=== PATIENT | female | born 1960 | race Caucasian/White ===

== ENCOUNTER 2020-08-18 08:02 | Outpatient (CLI) | payer MEDICARE, SELFPAY ==
--- NOTE | ~2020-08-18 | MM_ITS ---
EXAMINATION: MM screening elena BI w amina HISTORY: Screening mammogram TECHNIQUE: Craniocaudal and mediolateral oblique 3-D tomosynthesis images were obtained and synthetic 2-D images were generated. CAD analysis was submitted and interpreted. COMPARISON: 01/31/2018, 06/30/2016 BREAST PARENCHYMAL COMPOSITION: The breasts are almost entirely fatty. FINDINGS: Stable intramammary lymph node is noted in the upper outer quadrant of the right breast. Th ere is no evidence of suspicious mass, calcification, or architectural distortion to suggest malignan cy in either breast. There has been no suspicious interval change. IMPRESSION: 1. No mammographic evidence of malignancy. 2. Recommend routine screening mammography in one year. BI-RADS Category 2: Benign finding(s). Reviewed, dictated and finalized at location D. GER
== END 2020-08-18 08:03 | disposition home or self-care (01) ==
PROVIDERS: PCP Family Medicine; Visit Provider Obstetrics & Gynecology Gynecology
DX: Z12.31 Encounter for screening mammogram for malignant neoplasm of breast (principal)
CPT/HCPCS: 77063; 77067

== ENCOUNTER 2022-09-26 16:05 | Outpatient (CLI) | payer MEDICARE, SELFPAY ==
--- NOTE | ~2022-09-26 | DEXA_ITS ---
Bone Density Report Name: GERONIMO HOWARD Age: 61 Sex: Female Ethnicity: White Date of : 1960 Indication: postmenopausal; screening for osteoporosis; Referring Provider: HEMANT VANEGAS Study: Bone densitometry was performed. Exam Date: September 26, 2022 Accession number: [id number] Bone Density: Region BMD T-score Z-score Classification AP Spine(L1-L4) 1.468 3.8 5.4 Normal Femoral Neck (Left) 0.852 0.0 1.4 Normal Total Hip (Left) 1.115 1.4 2.5 Normal Femoral Neck (Right) 0.855 0.1 1.5 Normal Total Hip (Right) 1.155 1.7 2.8 Normal Total Hip Mean 1.135 1.6 2.7 Normal World Health Organization criteria for BMD impression classify patients as: Normal (T-score at or above -1.0), Osteopenia (T-score between -1.0 and -2.5), or Osteoporosis (T-score at or below -2.5). 10-year Fracture Risk: FRAX not reported because: All T-scores for Spine Total, Hip Total, Femoral Neck at or above -1.0 Clinical Information Provided by Patient: Has used the following medications: HRT (i.e. estrogen/hormone therapy), Vitamin D Patient maximum height was 62 Menopause Age: 53 No regular weight bearing exercise Does not regularly consume dairy products Drinks caffeinated beverages Onset of menses at age 13 Number of children 3 Impression: The patient has normal bone mass. Discussion: BONE DENSITY IS ABOVE THE MINIMUM DESIRABLE LEVEL AT ALL SKELETAL SITES TESTED. This patient?s bone mineral density is above the minimum desirable level (T-score -1.0 or better) at all sites measured. The patient should follow a healthful lifestyle (good nutrition with adequate calcium and vitamin D, and appropriate weight-bearing exercise). Follow-Up: Consider repeating this study in 5 years or sooner if there is some new clinical indication. Reported by: SALVADOR on 09/26/2022 5:04:00 PM. Reviewed, dictated and finalized at location [facility] MANNING
--- NOTE | ~2022-09-26 | MM_ITS ---
EXAMINATION: MM screening elena BI w amina HISTORY: Screening TECHNIQUE: Craniocaudal and mediolateral oblique 3-D tomosynthesis images were obtained and synthetic 2-D images were generated. CAD analysis was submitted and interpreted. COMPARISON: Comparison to multiple prior studies sequentially, with oldest reviewed study dated 06/30. BREAST PARENCHYMAL COMPOSITION: There are scattered areas of fibroglandular density. FINDINGS: There is no evidence of suspicious mass, calcification, or architectural distortion to sugg est malignancy in either breast. There has been no suspicious interval change. IMPRESSION: 1. No mammographic evidence of malignancy. 2. Recommend routine screening mammography in one year. BI-RADS Category 1: Negative Reviewed, dictated and finalized at location A. CE AUDITOR
== END 2022-09-26 16:06 | disposition home or self-care (01) ==
PROVIDERS: PCP Family Medicine; Visit Provider Obstetrics & Gynecology Gynecology
DX: Z12.31 Encounter for screening mammogram for malignant neoplasm of breast (principal); Z78.0 Asymptomatic menopausal state
CPT/HCPCS: 77063; 77067; 77080

== ENCOUNTER → 2023-04-16 16:27 | Outpatient (CLI) | payer MEDICARE, SELFPAY ==
--- NOTE | ~2023-04-16 | XR_ITS ---
EXAMINATION: XR hip LT 2V w AP pelvis DATE: 04/16/2023 16:38 INDICATION: Left hip pain. TECHNIQUE: An anteroposterior view of the pelvis and 2 views of left hip were obtained. COMPARISON: None. FINDINGS: Bone alignment is normal. No fracture. There is at least moderate lumbar spondylosis. There is mild right hip osteoarthritis and severe left hip osteoarthritis. IMPRESSION: 1. Mild right hip osteoarthritis and severe left hip osteoarthritis. Reviewed, dictated and finalized at location E.
== END ==
PROVIDERS: PCP Physician Assistant Medical; Visit Provider Physician Assistant Medical
DX: M16.0 Bilateral primary osteoarthritis of hip (principal)
CPT/HCPCS: 73502

== ENCOUNTER 2024-03-28 14:13 | Outpatient (CLI) | payer MEDICARE, SELFPAY ==
--- NOTE | ~2024-03-28 | MM_ITS ---
EXAMINATION: MM screening elena BI w amina HISTORY: Screening TECHNIQUE: Craniocaudal and mediolateral oblique 3-D tomosynthesis images were obtained and synthetic 2-D images were generated. CAD analysis was submitted and interpreted. COMPARISON: Comparison to multiple prior studies sequentially, with oldest reviewed study dated 06/30. BREAST PARENCHYMAL COMPOSITION: Not dense: There are scattered areas of fibroglandular density. FINDINGS: There is no evidence of suspicious mass, calcification, or architectural distortion to sugg est malignancy in either breast. There has been no suspicious interval change. IMPRESSION: 1. No mammographic evidence of malignancy. 2. Recommend routine screening mammography in one year. BI-RADS Category 1: Negative Reviewed, dictated and finalized at location B.
== END 2024-03-28 14:14 | disposition home or self-care (01) ==
LOC: ANHIMG 14:14
PROVIDERS: PCP Family Medicine; Visit Provider Obstetrics & Gynecology Gynecology
DX: Z12.31 Encounter for screening mammogram for malignant neoplasm of breast (principal)
CPT/HCPCS: 77063; 77067

== ENCOUNTER 2024-05-05 13:48 | Outpatient (CLI) | payer MEDICARE, SELFPAY ==
--- NOTE | ~2024-05-05 | XR_ITS ---
AP view of the pelvis and AP and lateral views of the left hip Clinical history: Pain Findings: No acute fracture or dislocation is seen. Osseous alignment is anatomic. There is moderate left hip joint degenerative change. Right hip joint preserved. Soft tissues are unremarkable. Impression: Moderate left hip joint degenerative change. Reviewed, dictated and finalized at location . Impression: Moderate left hip joint degenerative change.
== END 2024-05-05 13:49 | disposition home or self-care (01) ==
LOC: ANHIMG 13:49
PROVIDERS: PCP Family Medicine; Visit Provider Orthopaedic Surgery
DX: M16.12 Unilateral primary osteoarthritis, left hip (principal)
CPT/HCPCS: 73502

== ENCOUNTER 2024-07-21 07:19 | Outpatient (CLI) | payer MEDICARE, SELFPAY ==
--- NOTE | 2024-07-21 | EST_ITS ---
Patient Info Name: Porsha Sinclair Age: 63 years : 1960 Gender: Female Wt: 190 lbs HR: 46 bpm BP: 112 / 75 mmHg Heart Rhythm: Sinus Rhythm Exam Date: 07/21/2024 8:18 AM Exam Location: Echo Lab Patient Status: Outpatient Admit Date: 07/21/2024 Staff Ordering Physician: Geena Savage MD Attending Provider: Geena Savage MD Exercise Technologist: Quita Cardenas CT Exercise Physician: Yeison Pickering DO Exam Type: CA stress margarita w NM Study Info Indications Z01.810 - Encounter for preprocedural cardiovascular examination A persantine stress test was performed. Summary 1. 1. Negative lexiscan stress test for ischemic ST changes by ECG criteria. 2. 2. Stable hemodynamics throughout the test. 3. 3. Nuclear scan to follow and will be reported separately. Please correlate with it. 4. 4. Patient informed of the above results. Protocol: Lexiscan Stress ECG Details Stage: REST Duration (min): 1 min : 37 sec HR (bpm): 46 SBP (mmHg): 112 DBP (mmHg): 75 Stage: REST Duration (min): 7 min : 32 sec HR (bpm): 51 SBP (mmHg): 112 DBP (mmHg): 75 Stage: STAGE 1 Duration (min): 0 min : 59 sec HR (bpm): 54 SBP (mmHg): 118 DBP (mmHg): 65 Stage: RECOVERY Duration (min): 1 min : 0 sec HR (bpm): 65 SBP (mmHg): 118 DBP (mmHg): 65 Stage: RECOVERY Duration (min): 2 min : 0 sec HR (bpm): 63 SBP (mmHg): 118 DBP (mmHg): 65 Stage: RECOVERY Duration (min): 3 min : 0 sec HR (bpm): 65 SBP (mmHg): 115 DBP (mmHg): 62 Stage: RECOVERY Duration (min): 3 min : 21 sec HR (bpm): 64 SBP (mmHg): 115 DBP (mmHg): 62 Rest HR: 51 bpm Peak HR: 70 bpm Rest Sys BP: 112 mmHg Peak Sys BP: 118 mmHg Max Pred HR: 156 bpm % Max Pred HR: 45 % Target HR: 133 bpm Max RPP: 8,260 bpm*mmHg Termination Reason: Completed protocol Cardiac Symptoms: Stomach discomfort Total Time: 1 min : 0 sec Rest Devi BP: 75 mmHg Peak Devi BP: 65 mmHg Total Dose: 0.4 mg Resting ECG Sinus bradycardia, cannot r/o septal infarct, borderline ST-T wave in high lateral leads. Stress ECG No ST changes. Arrhythmias None. Report Signatures
--- NOTE | ~2024-07-21 | NM_ITS ---
EXAMINATION: NM margarita stress w perfusion DATE: 07/21/2024 10:55 INDICATION: Encounter for screening for cardiovascular disorder TECHNIQUE: Rest images were obtained following intravenous administration of 10.2 mCi Tc99m tetrofosm in (Myoview). The patient was infused intravenously with Lexiscan (Regadenoson). Then, 33.7 mCi Tc99m tetrofosmin (Myoview) was administered intravenously, and stress images were obtained. Data was adelaide nstructed into short axis and horizontal and vertical long axis SPECT images. Gated SPECT images were also obtained. COMPARISON: None. FINDINGS: Small mild reversible perfusion defect at the apical lateral segment consistent with ischem ia. Normal perfusion on rest imaging with no nonreversible infarcts. There is normal left ventricular chamber size, wall motion and ejection fraction. Left ventricular ejection fraction measures >70%. IMPRESSION: 1. Small mild reversible perfusion defect consistent with ischemia at the apical lateral segment. 2. Left ventricular ejection fraction measuring >70%. Reviewed, dictated and finalized at location A. IMPRESSION: 1. Small mild reversible perfusion defect consistent with ischemia at the apica l lateral segment. 2. Left ventricular ejection fraction measuring >70%.
== END 2024-07-21 07:20 | disposition home or self-care (01) ==
PROVIDERS: PCP Family Medicine; Visit Provider Internal Medicine Cardiovascular Disease
DX: Z13.6 Encounter for screening for cardiovascular disorders (principal); Z68.34 Body mass index [BMI] 34.0-34.9, adult; R73.03 Prediabetes; B97.21 SARS-associated coronavirus as the cause of diseases classified elsewhere; E66.9 Obesity, unspecified; I51.89 Other ill-defined heart diseases; Z82.49 Family history of ischemic heart disease and other diseases of the circulatory system; I87.2 Venous insufficiency (chronic) (peripheral); G47.10 Hypersomnia, unspecified; G47.30 Sleep apnea, unspecified; Z13.9 Encounter for screening, unspecified; E78.5 Hyperlipidemia, unspecified; I10 Essential (primary) hypertension
CPT/HCPCS: 78452; 93017; A9502; J2785

== ENCOUNTER 2024-08-25 00:33 | Day surgery (SDC) | payer MEDICARE, MEDICAID, SELFPAY ==
[2024-08-22 17:11] VITALS: BMI 35.7
[2024-08-25] VITALS (9 sets, daily range): BP systolic 109–139; BP diastolic 50–92; PULSE 53–62; RESP 13–18; O2SAT 95–100
[2024-08-25 12:00] LABS: Anion Gap 9 mmol/L (4-12); Blood Urea Nitrogen 12 mg/dL (7-17); Calcium 9.3 mg/dL (8.4-10.2); Carbon Dioxide 23 mmol/L (22-30); Chloride 107 mmol/L (98-107); Estimated CRCL calculation 83 ml/min; Estimated Glomerular Filt Rate > 60; Glucose 110 mg/dL (65-110); Potassium 4.1 mmol/L (3.4-5.0); Sodium 139 mmol/L (137-145)
--- NOTE | 2024-08-25 13:01 | WPDHPUPDATE1 ---
History and Physical Update Update Date/Time: 08/25/24 13:01 History and Physical has been reviewed, including an updated exam of the patient. There are NO changes in the patient's condition. Risks, benefits, and alternatives have been discussed and questions answered. Patient agrees to proceed with procedure. PT HAS ABNORMAL STRESS AND IS HERE FOR EVAL FOR PREOP CLEARANCE FOR HIP SURGERY STRESSS WAS ABNORMAL WITH APICAL ISCHEMIA LVEF WAS 70% DONE HERE AT [facility] ON 07/21/24
--- NOTE | 2024-08-25 13:04 | WPDCARDPROC ---
Cardiac Cath Procedure Note Date of procedure:: 08/25/24 Performing physician:: Geena Savage MD Indication:: Abnormal Cardiolite stress test for preoperative clearance Brief clinical history:: patient is a 63-year-old female who is having hip surgery she has had a prior abnormal stress test secondary to attenuation artifact for preoperative clearance she underwent a stress test here at [facility] demonstrating apical ischemia with an EF of 70% she is here for cardiac catheterization for preoperative clearance Procedure Procedure performed:: ultrasound-guided access of the right common femoral artery selective coronary angiography left ventriculography right common femoral angiogram Angio-Seal closure with excellent hemostasis Sedation/Medication given:: patient received 2 mg of Versed and 25 mcg of fentanyl IV conscious sedation time was for 23 minutes conscious sedation was administered and monitored by trained personnel in the setting of cardiac catheterization Access site:: right common femoral arterial area Estimated blood loss:: 10 mL Procedure note:: risks benefits alternatives of procedure were explained the patient and family including but not limited to stroke heart attack loss of limb loss of digits need for amputation and vascular injury or dye reaction dye allergy dialysis and/or need for emergency bypass surgery or vascular surgery requiring transfer to outside hospital at rate of 10/999 for the angiographic portion of procedure 1/100 for percutaneous revascularization portion of procedure patient understood the risks and was willing to proceed after informed consent was obtained patient underwent standard sterile prep and drape right common femoral arterial area was evaluated with ultrasound it was injected with lidocaine and with live ultrasound imaging micropuncture kit was used and access was obtained in the right common femoral artery with a 5 Malian sheath. Five Malian JL4 JR4 and angled pigtail catheters were used for angiographic imaging which was performed in various angles to delineate vascular anatomy findings include Findings:: LMT left main trunk was large widely patent angiographically appeared to be grossly normal LCX left circumflex is a large codominant vessel it has a large AV groove which is angiographically widely patent there is a small OM1 small OM2 large OM3 and large OM for which serves as a codominant PDA all of which are angiographically widely patent appeared grossly normal Left anterior descending lad is a large-sized vessel it has a large proximal 1st diagonal branch which is angiographically widely patent appears to be grossly normal there is also a large septal general handling supervisor which appears to be angiographically widely patent appears to be grossly normal and the remainder of the LAD itself is patent in its course down to the apex where it becomes a smallish vessel RCA right coronary artery is a medium caliber vessel it is angiographically widely patent there is a posterior descending artery which is codominant with the left circumflex and its overall widely patent LVG left ventriculogram was performed demonstrating a vigorously hua LV with an ejection fraction of 65% aortic pressure was 147/57 with a mean arterial pressure of 97 and the left ventricular pressure was noted to be 152/-17 with an EDP of 18 no significant mitral regurgitation is noted right common femoral angiogram was performed this demonstrated that the the sheath was in the appropriate position for closure and a 6 Malian Angio-Seal closure device was then utilized with excellent hemostasis there is no oozing bleeding or hematoma Conclusion:: impression 1. Grossly angiographically normal coronary arteries with a codominant system with a false-positive nuclear stress test 2. Preserved left ventricular systolic function ejection fraction 65% no significant mitral regurgitation noted 3. mildly elevated LVEDP 4. mildly elevated SBP Assessment and Plan Assessment and plan (1) FH ischemic heart disease: Code(s): Z82.49 - Family history of ischemic heart disease and other diseases of the circulatory system Status: Acute (2) Essential hypertension: Code(s): I10 - Essential (primary) hypertension Status: Acute (3) Prediabetes: Code(s): R73.03 - Prediabetes Status: Acute (4) Morbid obesity: Code(s): E66.01 - Morbid (severe) obesity due to excess calories Status: Acute (5) BMI greater than 30: Status: Acute (6) Arthritis of left hip: Code(s): M16.12 - Unilateral primary osteoarthritis, left hip Status: Acute (7) Chronic left hip pain: Code(s): M25.552 - Pain in left hip; G89.29 - Other chronic pain Status: Acute Plan preoperative evaluation-patient is planned for preoperative candidacy for hip surgery. At present based on the cardiac catheterization findings patient is deemed to be an acceptable candidate for the planned orthopedic surgical procedure. I would recommend that her systolic blood pressure be maintained range of 110-140 mm Hg and her heart rate maintained in a range of 60-90. Okay to utilize intravenous beta-blockers calcium channel blockers nitrates and afterload reducing agents to maintain the aforementioned hemodynamic parameters. In the event that she has arrhythmias noted during procedure we recommend that she go to monitor bed for formula mixer.
== END 2024-08-25 16:59 | disposition home or self-care (01) ==
PROVIDERS: PCP Family Medicine; Visit Provider Internal Medicine Cardiovascular Disease
PROC: 4A023N7 Measurement of Cardiac Sampling and Pressure, Left Heart, Percutaneous Approach (ICD-10-PCS; CPT 93452; principal; 2024-08-25 13:00)
DX: R94.39 Abnormal result of other cardiovascular function study (principal); I10 Essential (primary) hypertension; R73.03 Prediabetes; M16.12 Unilateral primary osteoarthritis, left hip; M25.552 Pain in left hip; G89.29 Other chronic pain; E66.01 Morbid (severe) obesity due to excess calories; Z68.36 Body mass index [BMI] 36.0-36.9, adult; Z82.49 Family history of ischemic heart disease and other diseases of the circulatory system
CPT/HCPCS: 36415; 80048; 93458; C1760; C1887; C1894; G0269; J1644; J2003; J2250; J2305; J3010; J7040

== ENCOUNTER 2024-11-03 10:03 | Outpatient (CLI) | payer MEDICARE, MEDICAID, SELFPAY ==
--- OUTSIDE RECORDS SUMMARY | 2024-11-03 11:01 | XMS_ITS | CONTINUITY OF CARE DOCUMENT ---
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 Condition Screening active Geena Savage MD Body mass index (BMI) 34.0-34.9, adult active Geena Savage MD SARS-associated coronavirus active Geena Savage MD Obesity active Nguyễn Lott MD Diastolic dysfunction active Nguyễn Lott MD FAMILY HISTORY OF HEART DISEASE active Nguyễn Lott MD all famil y cad Venous insufficiency active Nguyễn Thompson Cancer - colon completed - Nguyễn Lott MD Sleep apnea;non compliant active Nguyễn field MD Screening active Nguyễn Lott MD Abnormal cardiovascular stre ss test completed - Nguyễn Lott MD Hypercholesterolemia active Geena Savage MD HTN essential active Geena bae MD Family History of Sudden Cardiac : completed - Nguyễn Lott MD Family History of CVA or Stroke: completed - Nguyễn Lott MD ENCOUNTERS Date Type Provider Location Encounter Diag nosis - In-person encounter Office Visit Geena Savage MD [place] Body mass index (BMI) 34.0-34.9, adultCardiovascular Condition Screening - In-person encounter Office Visit Geena Savage MD [facility] - In-person encounter Office Visit Geena Savage MD [facility] - In-person encounter Office Visit Geena Savage MD [facility] - In-person encounter Office Visit Geena Savage MD [facility] SARS-associated coronavirus - In-person encounter Office Visit Geena Savage MD [facility] - In-person encounter Office Visit Geena Savage MD [facility] - In-person encounter Office Visit Nguyễn Lott MD [facility] Family History of CVA or Stroke:Family History of Sudden Cardiac :Abnormal cardiovascular stress testScreeningSleep apnea;non compliantCancer - colonVenous insufficiencyFAMILY HISTORY OF HEART DISEASEDiastolic dysfunctionObesity - In-person encounter Office Visit Geena Savage MD [facility] - In-person encounter Office Visit Geena Savage MD [facility] Venous insufficiency - In-person encounter Office Visit Geena Savage MD [facility] - In-person encounter Office Visit Geena Savage MD [facility] - In-person encounter Office Visit Geena Savage MD [facility] ScreeningSleep apnea;non compliant - In-person encounter Office Visit Geena Savage MD [facility] HTN essentialHypercholesterolemia VITAL SIGNS Date Observation Value Provider Body Mass Index (Ratio) 34.54 kg/m2 Dexter Savage MD blood pressure, diastolic 62 mm[Hg] Vi raymond [facility], systolic 131 mm[Hg] Vip in [facility] pulse rate 54 /min [facility] respiratory rate E&M 16 /min [facility] oxygen saturation, oximetry 98 % [facility] weight E&M 195 [lb_av] [facility] blood pressure, cuff size regular Carmita andrade [facility] height E&M 63 [in_i] [facility] Body Mass Index (Ratio) 34.54 kg/m2 Dexter Savage MD blood pressure, diastolic 80 mm[Hg] Nilsa nkLogic blood pressure, systolic 158 mm[Hg] Sherri kLogic blood pressure, cuff size regular Glen rret blood pressure, diastolic 80 mm[Hg] Ja rret blood pressure, systolic 158 mm[Hg] Jar ret pulse rate 56 /min Augie y oxygen saturation, oximetry 96 % Augie respiratory rate E&M 12 /min Augie weight E&M 195 [lb_av] Augie y height E&M 63 [in_i] Augie erda y Body Mass Index (Ratio) 34.01 kg/m2 Dexter Savage MD blood pressure, diastolic 67 mm[Hg] Li sa Mohamud blood pressure, systolic 121 mm[Hg] Lis a Mohamud blood pressure, cuff size regular Li sa Mohamud oxygen saturation, oximetry 97 % Violetta Mohamud pulse rate 76 /min Violetta Mohamud weight E&M 192 [lb_av] Violetta Mohamud Body Mass Index (Ratio) 39.14 kg/m2 Dexter Savage MD blood pressure, cuff size large Ke rri Gruenenfeldacacia blood pressure, diastolic 70 mm[Hg] Ke rri Esauenenfelder blood pressure, systolic 120 mm[Hg] Ker ri Kelsienenfelder oxygen saturation, oximetry 96 % Gladys Brianelder respiratory rate E&M 16 /min Gladys G ruenenfelder pulse rate 62 /min Gladys Kelsienenfe lder weight E&M 221 [lb_av] Gladys Esauenenfe lder height E&M 63 [in_i] Gladys Esauenenfe lder Body Mass Index (Ratio) 38.79 kg/m2 Dexter Savage MD blood pressure, diastolic 70 mm[Hg] Nilsa nkLogic blood pressure, systolic 137 mm[Hg] Sherri kLogsilvino blood pressure, diastolic 70 mm[Hg] Rh jin Hernandez blood pressure, systolic 137 mm[Hg] Rho goldie Hernandez oxygen saturation, oximetry 97 % Fifi Hernandez pulse rate 59 /min Fifi Hernandez weight E&M 219 [lb_av] Fifi Hernandez respiratory rate E&M 16 /min Fifi Hernandez blood pressure, resting Yes Eddien chaka Hernandez blood pressure, cuff size regular Rh onda Mary height E&M 63 [in_i] Fifi Hernandez Body Mass Index (Ratio) 37.20 kg/m2 Dexter Savage MD blood pressure, cuff size large Ke rri Esauenenfelder blood pressure, diastolic 70 mm[Hg] Ke rri Gruenenfelder blood pressure, systolic 120 mm[Hg] Ayan ri Cassandranfelder oxygen saturation, oximetry 96 % Gladys Vergaraer respiratory rate E&M 16 /min Gladys Giron ruenenfelder pulse rate 62 /min Gladys Torrese lder weight E&M 210 [lb_av] Gladys Kelsienenfe lder height E&M 63 [in_i] Gladys Briane er Body Mass Index (Ratio) 36.49 kg/m2 Dexter Savage MD blood pressure, diastolic 76 mm[Hg] Cy robert Spears blood pressure, systolic 133 mm[Hg] Lashonda licha Spears blood pressure, cuff size regular Cy robert Spears pulse rate 68 /min Lauren Ying l oxygen saturation, oximetry 95 % Laurenshane Spears respiratory rate E&M 16 /min Laurenlicha Spears weight E&M 206 [lb_av] Lauren Normanbel l height E&M 63 [in_i] Lauren Campbel l Body Mass Index (Ratio) 36.84 kg/m2 Dylon Lott MD oxygen saturation, oximetry 97 % Chastity Godfrey blood pressure, diastolic 72 mm[Hg] Ch astity Godfrey blood pressure, systolic 140 mm[Hg] Tessa stity Godfrey respiratory rate E&M 18 /min Chastit y Godfrey pulse rate 64 /min Chastity Godfrey weight E&M 208 [lb_av] Chastity Godfrey height E&M 63 [in_i] Chastity Godfrey Body Mass Index (Ratio) 35.60 kg/m2 Josh Amato pulse rate 60 /min Lauren Normanbel l blood pressure, cuff size small Cy robert Spears blood pressure, diastolic 66 mm[Hg] Cy robert Spears blood pressure, systolic 133 mm[Hg] Lashonda licha Spears oxygen saturation, oximetry 97 % Lauren Spears respiratory rate E&M 16 /min Lauren Spears weight E&M 201 [lb_av] Lauren Ying l height E&M 63 [in_i] Lauren Normanbel l Body Mass Index (Ratio) 35.50 kg/m2 Josh Amato blood pressure, diastolic 63 mm[Hg] Gamaliel Suresh blood pressure, systolic 124 mm[Hg] Roula Suresh oxygen saturation, oximetry 98 % Lulu Suresh respiratory rate E&M 18 /min Girma Suresh pulse rate 61 /min Lulu Garsiae ling weight E&M 200.4 [lb_av] Lulu jacome height E&M 63 [in_i] Lulu Genaro paulaon Body Mass Index (Ratio) 35.32 kg/m2 Dexter Savage MD blood pressure, diastolic 72 mm[Hg] Gamaliel Suresh blood pressure, systolic 142 mm[Hg] Roula Suresh oxygen saturation, oximetry 98 % Lulu Suresh respiratory rate E&M 18 /min Girma Suresh pulse rate 65 /min Lulu dubon weight E&M 199.4 [lb_av] Lulu Ady ayaz height E&M 63 [in_i] Lulu dubon Body Mass Index (Ratio) 35.60 kg/m2 Dexter Savage MD blood pressure, cuff size large Ke rri Gruenenfelder blood pressure, diastolic 96 mm[Hg] Ke rri Gruenenfelder blood pressure, systolic 132 mm[Hg] Ker ri Gruenenfelder oxygen saturation, oximetry 96 % Gladys Gruenenfelder respiratory rate E&M 18 /min Gladys G ruenenfelder pulse rate 58 /min Gladys Gruenenfe lder weight E&M 201 [lb_av] Gladys Gruenenfe lder height E&M 63 [in_i] Gladys Gruenenfe lder Body Mass Index (Ratio) 37.37 kg/m2 Dexter Savage MD blood pressure, cuff size regular Ke rri Gruenenfelder blood pressure, diastolic 76 mm[Hg] Ke rri Gruenenfelder blood pressure, systolic 168 mm[Hg] Ker ri Gruenenfelder oxygen saturation, oximetry 95 % Gladys Kelsienewingelder respiratory rate E&M 16 /min Gladys G jaquelineenenfelder pulse rate 68 /min Gladys Gruenenfe lder weight E&M 211 [lb_av] Gladys Grmilinenfe lder height E&M 63 [in_i] Gladys Gruenenfe lder blood pressure, diastolic 78 mm[Hg] Be tsy Cross blood pressure, systolic 140 mm[Hg] Bet sy Cross Body Mass Index (Ratio) 37.20 kg/m2 Dexter Savage MD blood pressure, cuff size regular Ke rri Gruenenfelder blood pressure, diastolic 72 mm[Hg] Ke rri Gruenenfelder blood pressure, systolic 171 mm[Hg] Ker ri Gruenenfelder oxygen saturation, oximetry 98 % Gladys Zaragoza respiratory rate E&M 16 /min Gladys rubiojacinta pulse rate 74 /min Gladys Heard er weight E&M 210 [lb_av] Gladys Heard lder height E&M 63 [in_i] [facility]ard [facility] ALLERGIES No Known Drug Allergies RESULTS Date Observation Value Provider Reference Range Interpretation Location 8 prothrombin time (patient) 10.9 s [facility] 9.1-12.0 8 international normalized ratio (INR) 1.0 [facility] 0.9-1.2 8 lipoprotein, beta, serum, point, quantitative, calculated 61 mg/dL [facility] 0-99 8 HDL cholesterol, serum 39 mg/dL [facility] >39 Low 8 triglyceride, serum, random 120 mg/dL [facility] 0-149 8 cholesterol, serum 122 mg/dL [facility] [phone]/11/0 8 calcium, serum 9.4 mg/dL [facility] 8.7-10.3 8 carbon dioxide, venous blood 24 mmol/L [facility] 20-29 8 chloride, serum 105 mmol/L [facility] 96-106 8 potassium, serum 4.9 mmol/L [facility] 3.5-5.2 8 sodium, serum 142 mmol/L [facility] [phone]/11/0 8 urea nitrogen/creatinine ratio, serum 17 [facility] 12-28 8 creatinine, serum 0.71 mg/dL [facility] 0.57-1.00 8 urea nitrogen, blood 12 mg/dL [facility] 8-27 8 blood glucose, random 107 mg/dL [facility] 70-99 High 8 basophil count, absolute 0.0 x10E3/uL [facility] 0.0-0.2 8 Eosinophil Absolute Count 0.2 X10E3/UL [facility] 0.0-0.4 8 monocyte count, blood, automated 0.7 X10E3/UL [facility] 0.1-0.9 8 lymphocyte count, blood, automated 1.9 X10E3/UL [facility] 0.7-3.1 8 Absolute Neutrophils 4.3 X10E3/UL [facility] 1.4-7.0 8 basophils as percent of blood leukocytes 1 % [facility] Not Estab. 8 eosinophils as percent of blood leukocytes 3 % [facility] Not Estab. 8 monocytes as percent of blood leukocytes 10 % [facility] Not Estab. 8 lymphocytes as percent of blood leukocytes 27 % [facility] Not Estab. 8 neutrophils as percent of blood leukocytes 59 % [facility] Not Estab. 8 platelet count 343 X10E3/UL [facility] [phone]/11/0 8 red blood cell distribution width 12.1 % [facility] 11.7-15.4 8 mean corpuscular hemoglobin concentration, RBC 32.6 G/DL [facility] 31.5-35.7 8 mean corpuscular hemoglobin, RBC 30.9 pg [facility] 26.6-33.0 8 mean corpuscular volume, RBC 95 fL [facility] 79-97 8 hematocrit, blood 44.8 % [facility] 34.0-46.6 8 hemoglobin, blood 14.6 g/dL [facility] 11.1-15.9 8 erythrocyte (RBC) count 4.72 X10E6/UL [facility] 3.77-5.28 8 leukocyte count, blood 7.2 X10E3/UL [facility] 3.4-10.8 2 lipoprotein, beta, serum, point, quantitative, calculated 67 mg/dL [facility] 0-99 2 HDL cholesterol, serum 34 mg/dL [facility] >39 Low 2 triglyceride, serum, random 167 mg/dL [facility] 0-149 High 2 cholesterol, serum 130 mg/dL [facility] 430-732 8853/06/1 2 alanine aminotransferase (SGPT), serum 17 1/L [facility] 0-32 2 aspartate aminotransferase (SGOT), serum 18 1/L [facility] 0-40 2 alkaline phosphatase, serum 115 1/L [facility] 44-121 2 bilirubin, serum, total 0.6 mg/dL [facility] 0.0-1.2 2 albumin/globulin ratio, serum 1.6 [facility] 1.2-2.2 2 globulin, serum 2.9 [facility] 1.5-4.5 2 albumin, serum 4.5 g/dL [facility] 3.8-4.8 2 protein, total, serum 7.4 g/dL [facility] 6.0-8.5 2 calcium, serum 9.5 mg/dL [facility] 8.7-10.3 2 carbon dioxide, venous blood 22 mmol/L [facility] 20-29 2 chloride, serum 103 mmol/L [facility] 96-106 2 potassium, serum 4.4 mmol/L [facility] 3.5-5.2 2 sodium, serum 140 mmol/L [facility] 668-259 0210/06/1 2 urea nitrogen/creatinine ratio, serum 17 [facility] 12-28 2 creatinine, serum 0.71 mg/dL [facility] 0.57-1.00 2 urea nitrogen, blood 12 mg/dL [facility] 8-27 2 blood glucose, random 109 mg/dL [facility] 65-99 High 2 hemoglobin A1C, blood, as % of total hemoglobin 6.0 % [facility] 4.8-5.6 High 9 B-type natriuretic peptide 90.5 pg/mL [facility] 0.0-100.0 free thyroxine index 2.0 [facility] 1.2-4.9 triiodothyronine resin uptake 25 % [facility] 24-39 thyroxine, serum, total 8.1 ug/dL [facility] 4.5-12.0 thyroid stimulating hormone, serum 1.600 u[IU]/mL [facility] 0.450-4.500 lipoprotein, beta, serum, point, quantitative, calculated 73 mg/dL [facility] 0-99 HDL cholesterol, serum 41 mg/dL [facility] >39 triglyceride, serum, random 181 mg/dL [facility] 0-149 High cholesterol, serum 145 mg/dL [facility] [phone]/10/0 9 alanine aminotransferase (SGPT), serum 19 1/L [facility] 0-32 aspartate aminotransferase (SGOT), serum 18 1/L [facility] 0-40 alkaline phosphatase, serum 106 1/L [facility] 44-121 bilirubin, serum, total 0.5 mg/dL [facility] 0.0-1.2 albumin/globulin ratio, serum 1.5 [facility] 1.2-2.2 globulin, serum 3.0 [facility] 1.5-4.5 albumin, serum 4.4 g/dL [facility] 3.8-4.8 protein, total, serum 7.4 g/dL [facility] 6.0-8.5 calcium, serum 9.3 mg/dL [facility] 8.7-10.3 carbon dioxide, venous blood 23 mmol/L [facility] 20-29 chloride, serum 104 mmol/L [facility] 96-106 potassium, serum 4.6 mmol/L [facility] 3.5-5.2 9 sodium, serum 140 mmol/L [facility] 650-940 6209/10/0 9 urea nitrogen/creatinine ratio, serum 18 [facility] 12-28 9 eGFR if 105 mL/min/{1 .73_m2} [facility] >59 9 eGFR if not 91 mL/min/{1 .73_m2} [facility] >59 9 creatinine, serum 0.72 mg/dL [facility] 0.57-1.00 9 urea nitrogen, blood 13 mg/dL [facility] 8-27 9 blood glucose, random 115 mg/dL [facility] 65-99 High 9 hemoglobin A1C, blood, as % of total hemoglobin 6.1 % [facility] 4.8-5.6 High 9 basophil count, absolute 0.0 x10E3/uL [facility] 0.0-0.2 9 Eosinophil Absolute Count 0.2 X10E3/UL [facility] 0.0-0.4 9 monocyte count, blood, automated 0.7 X10E3/UL [facility] 0.1-0.9 9 lymphocyte count, blood, automated 2.1 X10E3/UL [facility] 0.7-3.1 9 Absolute Neutrophils 4.9 X10E3/UL [facility] 1.4-7.0 9 basophils as percent of blood leukocytes 1 % [facility] Not Estab. 9 eosinophils as percent of blood leukocytes 3 % [facility] Not Estab. 9 monocytes as percent of blood leukocytes 9 % [facility] Not Estab. 9 lymphocytes as percent of blood leukocytes 26 % [facility] Not Estab. 9 neutrophils as percent of blood leukocytes 61 % [facility] Not Estab. 9 platelet count 340 X10E3/UL [facility] 165-648 4578/10/0 9 red blood cell distribution width 12.9 % [facility] 11.7-15.4 9 mean corpuscular hemoglobin concentration, RBC 32.4 G/DL [facility] 31.5-35.7 9 mean corpuscular hemoglobin, RBC 31.2 pg [facility] 26.6-33.0 9 mean corpuscular volume, RBC 96 fL [facility] 79-97 9 hematocrit, blood 44.4 % [facility] 34.0-46.6 9 hemoglobin, blood 14.4 g/dL [facility] 11.1-15.9 9 erythrocyte (RBC) count 4.61 X10E6/UL [facility] 3.77-5.28 9 leukocyte count, blood 8.0 X10E3/UL [facility] 3.4-10.8 2 magnesium, serum 2.2 mg/dL [facility] 1.6-2.3 2 thyroxine, serum, total 7.6 ug/dL [facility] 4.5-12.0 2 thyroid stimulating hormone, serum 0.927 u[IU]/mL [facility] 0.450-4.500 2 basophil count, absolute 0.0 x10E3/uL [facility] 0.0-0.2 2 Eosinophil Absolute Count 0.2 X10E3/UL [facility] 0.0-0.4 2 monocyte count, blood, automated 0.6 X10E3/UL [facility] 0.1-0.9 2 lymphocyte count, blood, automated 2.1 X10E3/UL [facility] 0.7-3.1 2 Absolute Neutrophils 5.3 X10E3/UL [facility] 1.4-7.0 2 basophils as percent of blood leukocytes 0 % [facility] Not Estab. 2 eosinophils as percent of blood leukocytes 2 % [facility] Not Estab. 2 monocytes as percent of blood leukocytes 8 % [facility] Not Estab. 2 lymphocytes as percent of blood leukocytes 25 % [facility] Not Estab. 2 neutrophils as percent of blood leukocytes 65 % [facility] Not Estab. 2 platelet count 340 X10E3/UL [facility] [phone]/04/1 2 red blood cell distribution width 13.5 % [facility] 12.3-15.4 2 mean corpuscular hemoglobin concentration, RBC 33.6 G/DL [facility] 31.5-35.7 2 mean corpuscular hemoglobin, RBC 31.0 pg [facility] 26.6-33.0 2 mean corpuscular volume, RBC 92 fL [facility] 79-97 2 hematocrit, blood 42.5 % [facility] 34.0-46.6 2 hemoglobin, blood 14.3 g/dL [facility] 11.1-15.9 2 erythrocyte (RBC) count 4.61 X10E6/UL [facility] 3.77-5.28 2 leukocyte count, blood 8.2 X10E3/UL [facility] 3.4-10.8 2 lipoprotein, beta, serum, point, quantitative, calculated 90 mg/dL [facility] 0-99 2 very low density lipoproteins 28 mg/dL [facility] 5-40 2 HDL cholesterol, serum 41 mg/dL [facility] >39 2 triglyceride, serum, random 139 mg/dL [facility] 0-149 2 cholesterol, serum 159 mg/dL [facility] [phone]/04/1 2 alanine aminotransferase (SGPT), serum 18 1/L [facility] 0-32 2 aspartate aminotransferase (SGOT), serum 20 1/L [facility] 0-40 2 alkaline phosphatase, serum 104 1/L [facility] 39-117 2 bilirubin, serum, total 0.6 mg/dL [facility] 0.0-1.2 2 albumin/globulin ratio, serum 1.5 [facility] 1.2-2.2 2 globulin, serum 3.0 [facility] 1.5-4.5 2 albumin, serum 4.4 g/dL [facility] 3.5-5.5 2 protein, total, serum 7.4 g/dL [facility] 6.0-8.5 2 calcium, serum 9.7 mg/dL [facility] 8.7-10.2 2 carbon dioxide, venous blood 23 mmol/L [facility] 18-29 2 chloride, serum 100 mmol/L [facility] 96-106 2 potassium, serum 4.3 mmol/L [facility] 3.5-5.2 2 sodium, serum 140 mmol/L [facility] 715-108 9151/04/1 2 urea nitrogen/creatinine ratio, serum 16 [facility] 9-23 2 eGFR if 98 mL/min/{1 .73_m2} [facility] >59 2 eGFR if not 85 mL/min/{1 .73_m2} [facility] >59 2 creatinine, serum 0.77 mg/dL [facility] 0.57-1.00 2 urea nitrogen, blood 12 mg/dL [facility] 6-24 2 blood glucose, random 92 mg/dL [facility] 65-99 1 very low density lipoproteins 36.2 mg/dL [facility] 5.0 - 40.0 1 LDL/HDL (low-density lipoprotein/high-den sity lipoprotein) ratio 3.0 RATIO [facility] - 1 lipoprotein, beta, serum, point, quantitative, calculated 79.8 (?) [facility] 0.0 - 100.0 1 HDL cholesterol, serum 27.0 mg/dL [facility] 45.0 - 65.0 Low 1 cholesterol, serum 143.0 mg/dL [facility] 0.0 - 200.0 1 triglyceride, serum, fasting 181.0 mg/dL [facility] 0.0 - 150.0 High 1 hemoglobin A1C, blood, as % of total hemoglobin 5.9 % [facility] 4.0 - 5.6 High HISTORY OF MEDICATION USE Medication Status Instructions Dates Provider Indications Com ments amlodipine 5 mg tablet active Take 1 tablet by mouth once a day 10/08 Gladys Zaragoza metoprolol succinate 50 mg tablet extended release 24 hr active Take 1 tablet by mouth once a day 10/08 Gladys Zaragoza lisinopril 10 mg tablet active TAKE 1 TABLET BY MOUTH EVERY DAY Gladys Zaragoza hydrochlorothiazide 12.5 mg capsule active TAKE 1 CAPSULE BY MOUTH EVERY DAY 03/19 [facility] amlodipine 5 mg tablet completed TAKE 1 TABLET BY MOUTH EVERY DAY 02/12 - 10/08 Gladys Zaragoza lisinopril 10 mg tablet completed Take 1 tablet by mouth once a day - Gladys Zargaoza ezetimibe 10 mg tablet active TAKE 1 TABLET [facility] tablet active TAKE 1 TABLET BY MOUTH DAILY Grey Gonzalezam hydrochlorothiazide 12.5 mg capsule completed TAKE 1 CAPSULE BY MOUTH ONCE DAILY - 03/19 [facility] amlodipine 5 mg tablet completed TAKE 1 TABLET BY MOUTH ONCE DAILY - 02/12 Sola Kwan metoprolol succinate 50 mg tablet extended release 24 hr completed TAKE 1 TABLET BY MOUTH DAILY - 10/08 Gladys Zaragoza lisinopril 10 mg tablet completed Take 1 tablet by mouth once a day TAKE 1 TABLET BY MOUTH DAILY 07/01 - Gladys Zaragoza CONTRAVE 8-90 MG ORAL TABLET EXTENDED RELEASE 12 HOUR completed 1 tab daily x1 week, then 1 tab twice daily x1 week, then 1 tab three times daily x1 week, then two tabs twice daily 11/11 - 11/18 Geena Savage MD Zetia 10 mg tablet completed 1 tablet by mouth once a day 11/11 - Marlen Rushing hydrochlorothiazide 12.5 mg capsule completed Take 1 capsule by mouth once a day TAKE 1 CAPSULE BY MOUTH DAILY 03/07 - Geena Savage MD lisinopril 10 mg tablet completed TAKE 1 TABLET BY MOUTH DAILY 10/18 - Geena Savage MD Estrace 0.5 mg tablet active Take 1 tab let by mouth once a day 11/27 Geena Savage MD ergocalciferol (vitamin D2) 1,250 mcg (50,000 unit) capsule active Take capsule by mouth once a week 11/27 Gladys Zaragoza Crestor 10 mg tablet completed TAKE 1 TABL ET DAILY 11/27 - Marlen Rushing amlodipine 5 mg tablet completed Take 1 tablet by mouth once a day 11/27 - Elizabeth Zuniga Toprol XL 50 mg tablet extended release 24 hr completed TAKE 1 TABLET DAILY 11/27 - Elizabeth Zuniga medroxyprogesterone 2.5 mg tablet active Take 1 by mouth once a day 11/27 Geena Savage MD SOCIAL HISTORY Date Observation Value Provider alcohol use, average drinks per day social Geena Savage MD alcohol use yes Geena carranza MD smoking status Never smoker Geena carlisle MD social history reviewed E&M revi ewed - no changes required Geena Savage MD social history reviewed E&M revi ewed - no changes required Geena Savage MD social history E&M S moking History: Tila lay has never smoked. Geena Savage MD social history reviewed E&M revi ewed - no changes required Geena Savage MD smoking status Never smoker Gladys ling social history E&M S moking History: Tila lay has never smoked. Geena Savage MD social history reviewed E&M revi ewed - no changes required Geena Savage MD smoking status Never smoker Fifi Hernandez social history E&M S moking History: P rosanne has never smoked. Geena Savage MD social history reviewed E&M revi ewed - no changes required Geena Savage MD smoking status Never smoker Gladys Winters anuradha social history E&M S moking History: P rosanne has never smoked. Geena Savage MD social history reviewed E&M revi ewed - no changes required Geena Savage MD smoking status Never smoker Lauren queen social history E&M S moking History: Tila lay has never smoked. Nguyễn Lott MD social history reviewed E&M revi ewed - no changes required Nguyễn Lott MD smoking status Never smoker Vannessa bull social history reviewed E&M revi ewed - no changes required Geena Savage MD social history E&M S moking History: Tila lay has never smoked. Geena Savage MD alcohol use, average drinks per day social Lauren Spears alcohol use yes Lauren hodges smoking status Never smoker Lauren queen social history E&M S moking History: Tila lay has never smoked. Geena Savage MD social history reviewed E&M revi ewed - no changes required Geena Savage MD alcohol use, average drinks per day social Lulu Suresh alcohol use yes Lulu dubon smoking status Never smoker Lulu Hayden social history reviewed E&M revi ewed - no changes required Adelia Maxwell NP social history E&M S moking History: Tila lay has never smoked. 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 Geena Savage MD social history reviewed E&M revi ewed - no changes required Geena Savage MD alcohol use, average drinks per day social Gladys Zaragoza alcohol use yes Gladys dvaid smoking status Never smoker Gladys ling social history E&M S moking History: Tila lay has never smoked. Geena Savage MD social history reviewed E&M revi ewed - no changes required Geena Savage MD alcohol use, average drinks per day social Gladys Zaragoza alcohol use yes Gladys david smoking status Never smoker Gladys ling smoking status Never smoker Yolanda Cross social history E&M S moking History: Tila lay has never smoked. Geena Savage MD social history reviewed E&M revi ewed - no changes required Geena Savage MD alcohol use, average drinks per day social Gladys Zaragoza alcohol use yes Gladys david smoking status Never smoker Gladys ling FUNCTIONAL STATUS Date Observation Value Provider periodic limb movement index absent (0) Yolanda Cross FAMILY HISTORY Family Member Condition Father [place] male <55 Mother Negative FH of Coron patricia Artery Disease Father Family History of Mey[place] dden Cardiac : Father Family History of CV A or Stroke: INSURANCE PROVIDERS Payer name Policy type / Coverage type Ksenia red constitution party ID [facility] [id number] ADVANCE DIRECTIVES Name Date DISCUSSED - NO DECISION MADE TREATMENT PLAN Date Name Performer [id number],C, C ONCLUSIONS: 1 . Normal left ventricular systolic function. Normal left ventricular size. Normal left ventricular wall thickness. Normal left v entricular diastolic function. Left ventricular ejection fraction is measured at 60 %. 2 . Normal right ventricular size. Normal right ventricular systolic function. 3 . There is trace physiologic mitral valve regurgitation. 4 . There is trace to mild tricuspid valve regurgitation. Estimated peak pulmonary artery systolic pressure is 33.0 mmHg. Geena Savage MD [id number],C, H er updated medication list for this problem includes: Ezetimibe 10 Mg Tablet (Ezetimibe) ..... Take 1 tablet by mouth daily Rosuvastatin 10 Mg Tablet (Rosuvastatin) ..... Take 1 tablet by mouth daily C HOL: 130 (03/19/2022) HDL: 34 (03/19/2022) Geena Savage MD [id number],S, H er updated medication list for this problem includes: Metoprolol Succinate 50 Mg Tablet Extended Release 24 Hr (Metoprolol succinate) ..... Take 1 tablet by mouth daily Amlodipine 5 Mg Tablet (Amlodipine) ..... Take 1 tablet by mouth once daily Hydrochlorothiazide 12.5 Mg Capsule (Hydrochlorothiazide) ..... Take 1 capsule by mouth once daily Lisinopril 10 Mg Tablet (Lisinopril) ..... Take 1 tablet by mouth once a day take 1 tablet by mouth daily BP today: 158/80 P rior BP: 121/67 (01/03/2023) Prior 10 Yr Risk Heart Disease: Not enough information (12/20/2016) Labs Reviewed: C reat: 0.71 (03/19/2022) C hol: 130 (03/19/2022) HDL: 34 (03/19/2022) Geena Savage MD [id number],C,b roni just had stents put in, had a prior bypass f [place]her of [place] in mid 40s P rior LVEF 60+% on stress and echo, she has bad family hx of heart disease, worsening of arthritis. Unable to walk on treadmill. Arrange for PET scan since she had significant attenuation artifact on prior nuclear stress test. may be a better test option. Geena Savage MD [id number],C, d id not tolerate CPA d oes not want dental applzlice Geena Savage MD [id number],C, C ONCLUSIONS: 1 . Normal left ventricular systolic function. Normal left ventricular size. Normal left ventricular wall thickness. Normal left v entricular diastolic function. Left ventricular ejection fraction is measured at 60 %. 2 . Normal right ventricular size. Normal right ventricular systolic function. 3 . There is trace physiologic mitral valve regurgitation. 4 . There is trace to mild tricuspid valve regurgitation. Estimated peak pulmonary artery systolic pressure is 33.0 mmHg. Geena Savage MD [id number],S, A dvised to elevate legs when possible and to wear compression socks Conclusions: 1 . No evidence of a deep vein thrombosis of the lower extremities bilaterally. 2. Venous insufficiency of the sapheno femoral junction bilaterally. 3 . Significant venous insufficiency of the greater saphenous vein bilaterally. 4 . Significant venous insufficiency of the lesser saphenous vein bilaterally. Compression stockings recommended Geena Savage MD [id number],C, d id not tolerate CPA d oes not want dental applzlice Geena Savage MD [id number],C, H er updated medication list for this problem includes: Ezetimibe 10 Mg Tablet (Ezetimibe) ..... Take 1 tablet by mouth daily Rosuvastatin 10 Mg Tablet (Rosuvastatin) ..... Take 1 tablet by mouth daily Geena Savage MD [id number],C, H er updated medication list for this problem includes: Hydrochlorothiazide 12.5 Mg Capsule (Hydrochlorothiazide) ..... Take 1 capsule by mouth once daily Amlodipine 5 Mg Tablet (Amlodipine) ..... Take 1 tablet by mouth once daily Metoprolol Succinate 50 Mg Tablet Extended Release 24 Hr (Metoprolol succinate) ..... Take 1 tablet by mouth daily Lisinopril 10 Mg Tablet (Lisinopril) ..... Take 1 tablet by mouth once a day take 1 tablet by mouth daily BP today: 121/67 P rior BP: 120/70 (03/17/2022) Prior 10 Yr Risk Heart Disease: Not enough information (12/20/2016) Labs Reviewed: C reat: 0.71 (03/19/2022) C hol: 130 (03/19/2022) HDL: 34 (03/19/2022) Geean Savage MD [id number],C, d id not tolerate CPA d oes not want dental applzlice Geena Savage MD [id number],C, H er updated medication list for this problem includes: Crestor 10 Mg Tablet (Rosuvastatin) ..... Take 1 tablet daily Zetia 10 Mg Tablet (Ezetimibe) ..... 1 tablet by mouth once a day Geena Savage MD [id number],C, C ONCLUSIONS: 1 . Normal left ventricular systolic function. Normal left ventricular size. Normal left ventricular wall thickness. Normal left v entricular diastolic function. Left ventricular ejection fraction is measured at 60 %. 2 . Normal right ventricular size. Normal right ventricular systolic function. 3 . There is trace physiologic mitral valve regurgitation. 4 . There is trace to mild tricuspid valve regurgitation. Estimated peak pulmonary artery systolic pressure is 33.0 mmHg. Geena Savage MD [id number],S, A dvised to elevate legs when possible and to wear compression socks Conclusions: 1 . No evidence of a deep vein thrombosis of the lower extremities bilaterally. 2. Venous insufficiency of the sapheno femoral junction bilaterally. 3 . Significant venous insufficiency of the greater saphenous vein bilaterally. 4 . Significant venous insufficiency of the lesser saphenous vein bilaterally. Compression stockings recommended Geena Savage MD [id number],C, V accinated (J&J) Geena Savage MD [id number],C, d oes not want surgery, will trxochitl morales Geena Savage MD [id number],C, d id not tolerate CPA d oes not want dental applzlice Geena Savage MD [id number],S,C heck labs H er updated medication list for this problem includes: Crestor 10 Mg Tablet (Rosuvastatin) ..... Take 1 tablet daily Zetia 10 Mg Tablet (Ezetimibe) ..... 1 tablet by mouth once a day Geena Savage MD [id number],FionaC ONCLUSIONS: 1 . Normal left ventricular systolic function. Normal left ventricular size. Normal left ventricular wall thickness. Normal left v entricular diastolic function. Left ventricular ejection fraction is measured at 60 %. 2 . Normal right ventricular size. Normal right ventricular systolic function. 3 . There is trace physiologic mitral valve regurgitation. 4. There is trace to mild tricuspid valve regurgitation. Estimated peak pulmonary artery systolic pressure is 33.0 mmHg. Geena Savage MD [id number],Shane Jaimes dvised to elevate legs when possible and to wear compression socks Conclusions: 1 . No evidence of a deep vein thrombosis of the lower extremities bilaterally. 2. Venous insufficiency of the sapheno femoral junction bilaterally. 3 . Significant venous insufficiency of the greater saphenous vein bilaterally. 4 . Significant venous insufficiency of the lesser saphenous vein bilaterally. Compression stockings recommended Geena Savage MD [id number],FionaC ONCLUSIONS: 1 . Normal sinus rhythm. Poor R wave progression. The resting EKG shows left anterior fascicular block. 2 . Normal Tyson protocol exercise tolerance test. There were no ischemic ST or T changes during the stress portion of the t est. 3 . Normal perfusion imaging. No definite fixed or reversible defects. There is a breast attenuation artifact noted. The severity o f the artifact is mild. Technical quality of study is good. Left ventricle cavity size with stress is unchanged. PORSHA ADDISON E Study Dt:10/07/2020 Page 2 4 . Left Ventricular Ejection Fraction is 63 %. TID: 0.92. Geena Savage MD [id number],C,Vaccinated (J &J) Geena Savage MD Cardiology: d id not tolerate CPA d oes not want dental applzlice Geena Savage MD Cardiology: E CHO 10/07/2020 CONCLUSIONS: 1 . Normal left ventricular systolic function. Normal left ventricular size. Normal left ventricular wall thickness. Normal left v entricular diastolic function. Left ventricular ejection fraction is measured at 60 %. 2 . Normal right ventricular size. Normal right ventricular systolic function. 3 . There is trace physiologic mitral valve regurgitation. 4 . There is trace to mild tricuspid valve regurgitation. Estimated peak pulmonary artery systolic pressure is 33.0 mmHg. Geena Savage MD Cardiology:This visi t has been a part of the consistent, comprehensive, and ongoing management of the chronic medical condition(s) listed above for the patient. H er updated medication list for this problem includes: Rosuvastatin 10 Mg Tablet (Rosuvastatin) ..... Take 1 tablet by mouth daily Ezetimibe 10 Mg Tablet (Ezetimibe) ..... Take 1 tablet by mouth daily Geena Savage MD Cardiology:This visi t has been a part of the consistent, comprehensive, and ongoing management of the chronic medical condition(s) listed above for the patient. B P today: 131/62 P rior BP: 158/80 (06/27/2023) Prior 10 Yr Risk Heart Disease: Not enough information (12/20/2016) Labs Reviewed: C reat: 0.71 (03/19/2022) C hol: 130 (03/19/2022) HDL: 34 (03/19/2022) LDL: 67 (03/19/2022) T (03/19/2022) Her updated medication list for this problem includes: Hydrochlorothiazide 12.5 Mg Capsule (Hydrochlorothiazide) ..... Take 1 capsule by mouth every day Metoprolol Succinate 50 Mg Tablet Extended Release 24 Hr (Metoprolol succinate) ..... Take 1 tablet by mouth daily Amlodipine 5 Mg Tablet (Amlodipine) ..... Take 1 tablet by mouth every day Lisinopril 10 Mg Tablet (Lisinopril) ..... Take 1 tablet by mouth once a day Geena Savage MD Cardiology:Patient h as history of coronary atherosclerosis, worsening symptoms of chest pain or shortness of breath, BMI>35, and is unable to exercise on treadmill long enough to achieve target heartrate. I am ordering a nuclear stress test to evaluate. SHE HAS HAD PRIOR NUCLEAR STRESS WITH ATTENUATION ARTIFACTS NOTED SHE NEEDS PREOP CLEARANCE FOR HIP SURGERY WILL NOT BE ABLE TO WALK FOR A STRESS SO NEED TO GET IMAGING AND PHARMACOLOGIC NUCLEAR STRESS HAS HIGH BMI AND MULTIPLE REASONS FOR ATTENUATION ARTIFACT Geena Savage MD Cardiology:NEEDS TESTING FOR PRE OP FOR LEFT HIP Geena Savage MD Cardiology: C ONCLUSIONS: 1 . Normal left ventricular systolic function. Normal left ventricular size. Normal left ventricular wall thickness. Normal left v entricular diastolic function. Left ventricular ejection fraction is measured at 60 %. 2 . Normal right ventricular size. Normal right ventricular systolic function. 3 . There is trace physiologic mitral valve regurgitation. 4. There is trace to mild tricuspid valve regurgitation. Estimated peak pulmonary artery systolic pressure is 33.0 mmHg. Geena Savage MD Cardiology: H er updated medication list for this problem includes: Ezetimibe 10 Mg Tablet (Ezetimibe) ..... Take 1 tablet by mouth daily Rosuvastatin 10 Mg Tablet (Rosuvastatin) ..... Take 1 tablet by mouth daily C HOL: 130 (03/19/2022) HDL: 34 (03/19/2022) Geena Savage MD Cardiology: H er updated medication list for this problem includes: Metoprolol Succinate 50 Mg Tablet Extended Release 24 Hr (Metoprolol succinate) ..... Take 1 tablet by mouth daily Amlodipine 5 Mg Tablet (Amlodipine) ..... Take 1 tablet by mouth once daily Hydrochlorothiazide 12.5 Mg Capsule (Hydrochlorothiazide) ..... Take 1 capsule by mouth once daily Lisinopril 10 Mg Tablet (Lisinopril) ..... Take 1 tablet by mouth once a day take 1 tablet by mouth daily BP today: 158/80 P rior BP: 121/67 (01/03/2023) Prior 10 Yr Risk Heart Disease: Not enough information (12/20/2016) Labs Reviewed: C reat: 0.71 (03/19/2022) C hol: 130 (03/19/2022) HDL: 34 (03/19/2022) Geena Savage MD Cardiology:brother giulia morris had stents put in, had a prior bypass f [place] in mid 40s P rior LVEF 60+% on stress and echo, she has bad family hx of heart disease, worsening of arthritis. Unable to walk on treadmill. Arrange for PET scan since she had significant attenuation artifact on prior nuclear stress test. may be a better test option. Geena Savage MD Cardiology: d id not tolerate CPA d oes not want dental applzlice Geena Savage MD Cardiology: C ONCLUSIONS: 1 . Normal left ventricular systolic function. Normal left ventricular size. Normal left ventricular wall thickness. Normal left v entricular diastolic function. Left ventricular ejection fraction is measured at 60 %. 2 . Normal right ventricular size. Normal right ventricular systolic function. 3 . There is trace physiologic mitral valve regurgitation. 4. There is trace to mild tricuspid valve regurgitation. Estimated peak pulmonary artery systolic pressure is 33.0 mmHg. Geena Savage MD Cardiology: A dvised to elevate legs when possible and to wear compression socks Conclusions: 1 . No evidence of a deep vein thrombosis of the lower extremities bilaterally. 2 . Venous insufficiency of the sapheno femoral junction bilaterally. 3 . Significant venous insufficiency of the greater saphenous vein bilaterally. 4 . Significant venous insufficiency of the lesser saphenous vein bilaterally. Compression stockings recommended Geena Savage MD Cardiology: d id not tolerate CPA d oes not want dental applzlice Genea Savage MD Cardiology: H er updated medication list for this problem includes: Ezetimibe 10 Mg Tablet (Ezetimibe) ..... Take 1 tablet by mouth daily Rosuvastatin 10 Mg Tablet (Rosuvastatin) ..... Take 1 tablet by mouth daily Geena Savage MD Cardiology: H er updated medication list for this problem includes: Hydrochlorothiazide 12.5 Mg Capsule (Hydrochlorothiazide) ..... Take 1 capsule by mouth once daily Amlodipine 5 Mg Tablet (Amlodipine) ..... Take 1 tablet by mouth once daily Metoprolol Succinate 50 Mg Tablet Extended Release 24 Hr (Metoprolol succinate) ..... Take 1 tablet by mouth daily Lisinopril 10 Mg Tablet (Lisinopril) ..... Take 1 tablet by mouth once a day take 1 tablet by mouth daily BP today: 121/67 P rior BP: 120/70 (03/17/2022) Prior 10 Yr Risk Heart Disease: Not enough information (12/20/2016) Labs Reviewed: C reat: 0.71 (03/19/2022) C hol: 130 (03/19/2022) HDL: 34 (03/19/2022) Geena Savage MD Cardiology: d id not tolerate CPA d oes not want dental applzlice Geena Savage MD Cardiology: H er updated medication list for this problem includes: Crestor 10 Mg Tablet (Rosuvastatin) ..... Take 1 tablet daily Zetia 10 Mg Tablet (Ezetimibe) ..... 1 tablet by mouth once a day Geena Savage MD Cardiology: C ONCLUSIONS: 1 . Normal left ventricular systolic function. Normal left ventricular size. Normal left ventricular wall thickness. Normal left v entricular diastolic function. Left ventricular ejection fraction is measured at 60 %. 2 . Normal right ventricular size. Normal right ventricular systolic function. 3 . There is trace physiologic mitral valve regurgitation. 4. There is trace to mild tricuspid valve regurgitation. Estimated peak pulmonary artery systolic pressure is 33.0 mmHg. Geena Savage MD Cardiology: A dvised to elevate legs when possible and to wear compression socks Conclusions: 1 . No evidence of a deep vein thrombosis of the lower extremities bilaterally. 2 . Venous insufficiency of the sapheno femoral junction bilaterally. 3 . Significant venous insufficiency of the greater saphenous vein bilaterally. 4 . Significant venous insufficiency of the lesser saphenous vein bilaterally. Compression stockings recommended Geena Savage MD Cardiology: V accinated (J&J) Geena Savage MD Cardiology: d oes not want surgery, will darrius morales Geena Savage MD Cardiology: d id not tolerate CPA d oes not want dental applzlice Geena Savage MD Cardiology:Check lab s H er updated medication list for this problem includes: Crestor 10 Mg Tablet (Rosuvastatin) ..... Take 1 tablet daily Zetia 10 Mg Tablet (Ezetimibe) ..... 1 tablet by mouth once a day Geena Savage MD Cardiology:CONCLUSIO NS: 1 . Normal left ventricular systolic function. Normal left ventricular size. Normal left ventricular wall thickness. Normal left v entricular diastolic function. Left ventricular ejection fraction is measured at 60 %. 2 . Normal right ventricular size. Normal right ventricular systolic function. 3 . There is trace physiologic mitral valve regurgitation. 4 . There is trace to mild tricuspid valve regurgitation. Estimated peak pulmonary artery systolic pressure is 33.0 mmHg. Geena Savage MD Cardiology: A dvised to elevate legs when possible and to wear compression socks Conclusions: 1 . No evidence of a deep vein thrombosis of the lower extremities bilaterally. 2 . Venous insufficiency of the sapheno femoral junction bilaterally. 3 . Significant venous insufficiency of the greater saphenous vein bilaterally. 4 . Significant venous insufficiency of the lesser saphenous vein bilaterally. Compression stockings recommended Geena Savage MD Cardiology:CONCLUSIO NS: 1 . Normal sinus rhythm. Poor R wave progression. The resting EKG shows left anterior fascicular block. 2 . Normal Tyson protocol exercise tolerance test. There were no ischemic ST or T changes during the stress portion of the t est. 3 . Normal perfusion imaging. No definite fixed or reversible defects. There is a breast attenuation artifact noted. The severity of the artifact is mild. Technical quality of study is good. Left ventricle cavity size with stress is unchanged. PORSHA ADDISON E Study Dt:10/07/2020 Page 2 4 . Left Ventricular Ejection Fraction is 63 %. TID: 0.92. Geena Savage MD Cardiology:Vaccinated (J&J) Dexter Savage MD Cardiology Follow up Geena garnica MD Cardiology Follow up : A dvised to elevate legs when possible and to wear compression socks Conclusions: 1 . No evidence of a deep vein thrombosis of the lower extremities bilaterally. 2 . Venous insufficiency of the sapheno femoral junction bilaterally. 3 . Significant venous insufficiency of the greater saphenous vein bilaterally. 4 . Significant venous insufficiency of the lesser saphenous vein bilaterally. Geena Savage MD Cardiology Follow up :did not tolerate CPA d oes not want dental applzlice Geena Savage MD Cardiology Follow up :PORSHA HOWARD E Study Dt:10/07/2020 Page 2 C ONCLUSIONS: 1 . Normal sinus rhythm. Poor R wave progression. The resting EKG shows left anterior fascicular block. 2 . Normal Tyson protocol exercise tolerance test. There were no ischemic ST or T changes during the stress portion of the t est. 3 . Normal perfusion imaging. No definite fixed or reversible defects. There is a breast attenuation artifact noted. The severity o f the artifact is mild. Technical quality of study is good. Left ventricle cavity size with stress is unchanged. 4 . Left Ventricular Ejection Fraction is 63 %. TID: 0.92. Geena Savage MD Cardiology Follow up :CONCLUSIONS: 1 . Normal left ventricular systolic function. Normal left ventricular size. Normal left ventricular wall thickness. Normal left v entricular diastolic function. Left ventricular ejection fraction is measured at 60 %. 2 . Normal right ventricular size. Normal right ventricular systolic function. 3 . There is trace physiologic mitral valve regurgitation. 4 . There is trace to mild tricuspid valve regurgitation. Estimated peak pulmonary artery systolic pressure is 33.0 mmHg. Geena Savage MD Cardiology follow up : B P today: 133/76 P rior BP: 140/72 (09/10/2019) Prior 10 Yr Risk Heart Disease: Not enough information (12/20/2016) Labs Reviewed: C reat: 0.77 (01/17/2018) C hol: 159 (01/17/2018) HDL: 41 (01/17/2018) Her updated medication list for this problem includes: Hydrochlorothiazide 12.5 Mg Oral Capsule (Hydrochlorothiazide) ..... One tab. daily Lisinopril 10 Mg Oral Tablet (Lisinopril) ..... One tab. daily Amlodipine Besylate 5 Mg Oral Tablet (Amlodipine besylate) ..... Take one pill a day Toprol Xl 50 Mg Oral Tablet Extended Release 24 Hour (Metoprolol succinate) ..... Once a day Geena Savage MD Cardiology follow up :Advised to elevate legs when possible and to wear compression socks Conclusions: 1 . No evidence of a deep vein thrombosis of the lower extremities bilaterally. 2 . Venous insufficiency of the sapheno femoral junction bilaterally. 3 . Significant venous insufficiency of the greater saphenous vein bilaterally. 4 . Significant venous insufficiency of the lesser saphenous vein bilaterally. Geena Savage MD Cardiology follow up :Had bloodwork 07/23/20. T otal chol: 129 H DL: 38 L DL:65 H er updated medication list for this problem includes: Zetia 10 Mg Oral Tablet (Ezetimibe) ..... One tab. daily Crestor 10 Mg Oral Tablet (Rosuvastatin calcium) ..... One tab. daily Geena Savage MD Cardiology follow up :Will repeat echocardiogram and stress test. Patient has no new sx but does have significant risk factors of HTN, hyperlipidemia, impressive fmhx of heart diease Geena Savage MD Cardiology: H er updated medication list for this problem includes: Hydrochlorothiazide 12.5 Mg Oral Capsule (Hydrochlorothiazide) ..... One tab. daily Lisinopril 10 Mg Oral Tablet (Lisinopril) ..... One tab. daily Amlodipine Besylate 5 Mg Oral Tablet (Amlodipine besylate) ..... Take one pill a day Toprol Xl 50 Mg Oral Tablet Extended Release 24 Hour (Metoprolol succinate) ..... Once a day Nguyễn Lott MD Cardiology Nguyễn Lott MD Cardiology:does not want surgery , will darrius Lott MD Cardiology Nguyễn Lott MD Cardiology:neg nuc and tsh and a bi Nguyễn Lott MD Cardiology:does not want dental applzlice Nguyễn Lott MD Cardiology: H er updated medication list for this problem includes: Zetia 10 Mg Oral Tablet (Ezetimibe) ..... One tab. daily Crestor 10 Mg Oral Tablet (Rosuvastatin calcium) ..... One tab. daily C HOL: 159 (01/17/2018) HDL: 41 (01/17/2018) Nguyễn Lott MD Cardiology follow up Josh Amato Cardiology follow up : H er updated medication list for this problem includes: Crestor 10 Mg Oral Tablet (Rosuvastatin calcium) ..... One tab. daily Geena Savage MD Cardiology follow up :Venous doppler 06/2018 Conclusions: 1 . No evidence of a deep vein thrombosis of the lower extremities bilaterally. 2 . Venous insufficiency of the sapheno femoral junction bilaterally. 3 . Significant venous insufficiency of the greater saphenous vein bilaterally. 4 . Significant venous insufficiency of the lesser saphenous vein bilaterally. Geena Savage MD Cardiology follow up :Mask is not comfortable. She is getting anxious while wearing it. Needs to be fitted for an alternative mask. Geena Savage MD Cardiology follow up : H er updated medication list for this problem includes: Hydrochlorothiazide 12.5 Mg Oral Capsule (Hydrochlorothiazide) ..... One tab. daily Lisinopril 10 Mg Oral Tablet (Lisinopril) ..... One tab. daily Amlodipine Besylate 5 Mg Oral Tablet (Amlodipine besylate) ..... Take one pill a day Toprol Xl 50 Mg Oral Tablet Extended Release 24 Hour (Metoprolol succinate) ..... Once a day BP today: 133/66 P rior BP: 124/63 (05/17/2018) Prior 10 Yr Risk Heart Disease: Not enough information (12/20/2016) Labs Reviewed: C reat: 0.77 (01/17/2018) C hol: 159 (01/17/2018) HDL: 41 (01/17/2018) Josh Amato Cardiology:Summary 1 . Myocardial scintigraphy is normal without evidence for previous myocardial infarction or reversible ischemia. 2 . Normal left ventricular size and function with a calculated ejection fraction of 67%. 3 . Normal Tyson protocol exercise tolerance test. Geena Savage MD Cardiology: H er updated medication list for this problem includes: Hydrochlorothiazide 12.5 Mg Oral Capsule (Hydrochlorothiazide) ..... One tab. daily Lisinopril 10 Mg Oral Tablet (Lisinopril) ..... One tab. daily Amlodipine Besylate 5 Mg Oral Tablet (Amlodipine besylate) ..... Take one pill a day Toprol Xl 50 Mg Oral Tablet Extended Release 24 Hour (Metoprolol succinate) ..... Once a day Orders: [place] KG ([id number]) BP today: 124/63 P rior BP: 142/72 (11/16/2017) Prior 10 Yr Risk Heart Disease: Not enough information (12/20/2016) Labs Reviewed: C reat: 0.77 (01/17/2018) C hol: 159 (01/17/2018) HDL: 41 (01/17/2018) Geena Savage MD Cardiology:R luisana martinez ma more than L. Concern here is for venous incompetence. Geena Savage MD Cardiology:Still has not had sleep study. She may have developed pulm. HTN. [facility] did not cover sleep study before. Will resubmit another order. Genea Savage MD Cardiology:Total cho lesterol within normal limits but triglycerides elevated on most recent bloodwork in February 2017. Adelia Maxwell NP Cardiology:Did not g et home sleep study due to insurance issues. Will reschedule. Adelia Maxwell NP Cardiology:Will cont inue to monitor. If persistently elevated, may need to treat more aggresively. BP today: 142/72 P rior BP: 132/96 (03/07/2017) Prior 10 Yr Risk Heart Disease: Not enough information (12/20/2016) Labs Reviewed: C hol: 143.0 (03/08/2017) HDL: 27.0 (03/08/2017) T.0 (03/08/2017) Adelia Fuchsshane GARCIA Cardiology Follow up Geena garnica MD Cardiology Follow up :Added hydrochlorothiazide 12.5mg. She has diastolic HTN. Geena Savage MD Cardiology Follow up :Home sleep study. Answers yes to pertinent questions. Geena Savage MD Cardiology Follow up :Added hydrachlorothyazide 12.5mg. She has diastolic HTN. Geena Savage MD Cardiology Follow up :Check lipid panel since she is on Crestor H er updated medication list for this problem includes: Crestor 10 Mg Tabs (Rosuvastatin calcium) ..... One tab. daily Geena Savage MD Cardiology Follow up :Will arrange a nuclear stress test. We discussed the options of proceeding to cardiac catheterization with her abnormal stress ECG, however, she has decided that she does not want to be exposed to the risks of cardiac catheterization as they far outweight the risks of nuclear stress testing. Arrange for nuclear exercise stress. Geena Savage MD Cardiology Follow up :BP is elevated on Toprol and Norvasc. Will put her on lisinopril 10 mg daily. Get outpatient BP checked. H er updated medication list for this problem includes: Lisinopril 10 Mg Tabs (Lisinopril) ..... One tab. daily Amlodipine Besylate 5 Mg Oral Tabs (Amlodipine besylate) ..... Take one pill a day Toprol Xl 50 Mg Oral [id number] (Metoprolol succinate) ..... Once a day Geena Savage MD Cardiology New Patient Geena Savage MD Cardiology New Patient Geena Savage MD Cardiology New Patient Geena Savage MD Cardiology New Patient Geena Savage MD Date Name Stress Regadenoson Complete Echo myocardial blood belle w (PET) Stress Cardiac PET-C T EKG PET/CT - Myocardial Viability EKG Vitamin D, 25-Hydrox y HEMOGLOBIN A1c LIPID PANEL COMPREHENSIVE METABO LIC PANEL, W/EGFR TSH, free T4, total T3 CBC (INCLUDES DIFF/P LT) HEMOGLOBIN A1c B TYPE NATRIURETIC P EPTIDE (BNP) LIPID PANEL COMPREHENSIVE METABO LIC PANEL, W/EGFR Stress Exercise Card iolite Complete Echo Renal Artery Duplex CT, Coronary Calcium Score Venous Doppler Bilat eral LE - Reflux Arterial Duplex Bi-L ower EX Sleep Study Home Sleep Study Home MAGNESIUM THYROID PANEL WITH T SH, 3RD GENERATION LIPID PANEL COMPREHENSIVE METABO LIC PANEL, W/EGFR CBC (H/H, RBC, INDIC ES, WBC, PLT) HEPATIC FUNCTION [place] HEMOGLOBIN A1c LIPID PANEL COMPREHENSIVE METABO LIC PANEL, W/EGFR Sleep Study Home Sleep Study Home STR - Nuclear HEPATIC FUNCTION [place] HEMOGLOBIN A1c COMPREHENSIVE METABO LIC PANEL W/EGFR LIPID PANEL Complete Echo STR - Nuclear HISTORY OF PROCEDURES Procedure Date Procedure Name Provider Procedure Notes S tatus Complex e/m visit add on Geena Savage MD [06/11/2024 - zita] NO TESTING [facility] - completed EKG Geena Savage MD completed EKG Geena Savage MD completed EKG Geena Savage MD completed EKG Geena Savage MD completed EKG Geena Savage MD completed EKG Nguyễn Lott MD complete d EKG Geena Savage MD completed EKG Geena Savage MD completed EKG Geena Savage MD completed SNOMED-CT: 198336499466945 Current Medications Documented Geena Savage MD completed EKG Geena Savage MD completed SNOMED-CT: [id number] Current Medications Documented Geena Savage MD completed Stress EKG Geena Savage MD completed Cardiolite, 2 units Geena beltre MD completed SPECT Images Bryant Baez MD compl eted EKG Geena Savage MD completed SNOMED-CT: [id number] Current Medications Documented Geena Savage MD completed Stress EKG Moises Johnson MD completed EKG Geena Savage MD completed SNOMED-CT: [id number] Current Medications Documented Geena Savage MD completed
[2024-11-03 12:14] LABS: Basophils Percent Auto 0.3 % (0.2-1.2); Eosinophils Absolute Auto 0.1 K/mm3 (0-0.3); Eosinophils Percent Auto 0.8 % (0-4.4); Hematocrit 43.4 % (37.0-47.0); Hemoglobin 14.3 g/dL (12.0-15.0); Immature Granulocyte Absolute 0.03 K/mm3 (0.00-0.031); Immature Granulocyte Percent A 0.3 % (0-0.5); Lymphocytes Absolute Auto 1.79 K/mm3 (0.9-3.2); Lymphocytes Percent Auto 16.6 % (18.3-44.2); Mean Corpuscular HGB Conc 32.9 g/dl (32-36); Mean Corpuscular Hemoglobin 30.8 pg (26-34); Mean Corpuscular Volume 93.5 fl (80-100); Mean Platelet Volume 9.2 fl (7.4-10.4); Monocytes Absolute Auto 0.7 K/mm3 (0.1-0.6); Monocytes Percent Auto 6.5 % (2.6-8.5); Neutrophils Absolute Auto 8.1 K/mm3 (1.3-6.7); Neutrophils Percent Auto 75.5 % (45.5-73.1); Platelet Count Result 345 k/mm3 (150-375); Red Blood Count 4.64 M/mm3 (4.2-5.4); Red Cell Distribution Width 12.7 % (11.5-14.5); White Blood Count 10.8 K/mm3 (4.5-10.0)
[2024-11-03 12:21] LABS: Albumin Level 4.5 g/dL (3.5-5.1)
[2024-11-03 12:25] LABS: Anion Gap 11 mmol/L (4-12); Blood Urea Nitrogen 15 mg/dL (7-17); Calcium 9.1 mg/dL (8.4-10.2); Carbon Dioxide 25 mmol/L (22-30); Chloride 104 mmol/L (98-107); Estimated Glomerular Filt Rate > 60; Glucose 117 mg/dL (65-110); Potassium 4.3 mmol/L (3.4-5.0); Sodium 140 mmol/L (137-145)
[2024-11-03 12:57] LABS: Urine Cotinine NEGATIVE
[2024-11-03 13:15] LABS: Hemoglobin A1C 5.8 % (<5.7)
[2024-11-03 13:36] LABS: MRSA (PCR) NOT DETECTED (NOT DETECTE)
== END 2024-11-03 10:04 | disposition home or self-care (01) ==
LOC: ANHSURGERY 10:08
PROVIDERS: Anesthesiology; PCP Family Medicine; Visit Provider Orthopaedic Surgery
DX: M16.12 Unilateral primary osteoarthritis, left hip (principal); I10 Essential (primary) hypertension; Z01.818 Encounter for other preprocedural examination
CPT/HCPCS: 36415; 80048; 80307; 82040; 83036; 85025; 87641

== ENCOUNTER 2024-11-25 01:08 | Day surgery (SDC) | payer MEDICARE, MEDICAID, SELFPAY ==
--- NOTE | 2024-11-03 09:59 | PC.NURSE ---
Report to the Outpatient Waiting Room, entrance under the green pavilion located off [facility], at time _6 AM on date _11/25/24 . Planned Procedure Time: _7:30 AM .? Time changes happen often and if your time is changed the preop area will call you the afternoon before. - You and your visitor will be asked to self-screen and do not enter if you have any COVID symptoms. Please call surgeon if you need to reschedule. - A mask is optional within the hospital at this time. Patients may have clear liquids (water, carbonated beverages, clear teas, apple juice) until 3 hours prior to surgery( 4:30 AM) with a maximum of 20 ounces. - No food from midnight until time of surgery and no smoking. This includes no chewing gum, candy or mints. Take only the following medications with a SIP of water on the morning of surgery: ____AMLODIPINE_AND METOPROLOL DO NOT STOP ANY OF YOUR OTHER PRESCRIPTION MEDICATIONS PRIOR TO SURGERY EXCEPT THE FOLLOWING Medications to discontinue per physician NONE MAY TAKE TYLENOL IF NEEDED FOR PAIN Please no make-up, nail salvadorean, hairspray, perfume, deodorant, or body powder the day of surgery.? No jewelry (including any body piercings) or valuables the day of surgery, leave them at home.? Please take a shower or bath the night before, or the morning of, surgery with an antibacterial soap.? Wear comfortable, loose fitting clothing.? Children are encouraged to wear pajamas. - Jewelry must be removed prior to entering the operating room.? Rings and piercings that are not removed may be cut off. - The hospital will not accept responsibility for valuables.? - Please leave all valuables, including medications, at home the day of surgery. If you are going home after surgery, a licensed class b truck driver must drive you home.? - NO public transportation without another adult if you receive anesthesia. - We recommend that an adult stay with you for 24 hours following discharge. - We also recommend that you do not drive, make important decision, drink alcoholic beverages, or take any drugs that were not prescribed by your health care provider for at least 24 hours after your discharge time. Hold all vitamins and supplements for _3 days per ____ANESTHESIA LAST DOSE 11/21/24 . Follow any additional instructions given to you from your surgeon. VERBAL AND WRITTEN instructions given to _PATIENT_AND SON ISABELLA and asked if any additional questions and then verbalized understanding. Patient advised to call surgeon office or pre surgery nurse liaison [phone] if any additional questions.
[2024-11-03 10:11] VITALS: BMI 36.2
[2024-11-03 11:00] VITALS: BP 136/64; PULSE 60; RESP 18; TEMP 36.6; O2SAT 97
[2024-11-25] VITALS (13 sets, daily range): BP systolic 114–141; BP diastolic 48–60; PULSE 59–88; RESP 10–21; TEMP 36.6–37.4; O2SAT 94–100
--- NOTE | ~2024-11-25 | XR_ITS ---
EXAMINATION: XR hip LT min 2V DATE: 11/25/2024 12:33 INDICATION: Left hip arthroplasty. Postop. TECHNIQUE: 2 views of left hip were obtained. COMPARISON: Left hip radiographs 11/03/2024 FINDINGS: There is a total left hip arthroplasty in near-anatomic alignment. No fracture. There is ga s in the soft tissues, consistent with recent surgery. IMPRESSION: 1. Total left hip arthroplasty in near-anatomic alignment. Reviewed, dictated and finalized at location A. PER LAYER
--- NOTE | 2024-11-25 07:24 | WPDHPUPDATE1 ---
History and Physical Update Update Date/Time: 11/25/24 07:24 History and Physical has been reviewed, including an updated exam of the patient. There are NO changes in the patient's condition. Risks, benefits, and alternatives have been discussed and questions answered. Patient agrees to proceed with procedure.
[2024-11-25] MEDS: ACETAMINOPHEN 500 MG TABLET 1000 MG PO (08:30)
[2024-11-25] MEDS: TRANEXAMIC ACID 1,000MG/ISO100 1,000 MG/100 ML BAG 200 MG IVPB (08:30)
[2024-11-25] MEDS: LACTATED RINGERS 1,000 ML 30 ML IV CONT (08:30)
--- NOTE | 2024-11-25 09:17 | P.PNAN_ITS ---
Anes - Initial Pre Proc Eval Procedure: Operation Date: 11/25/24 10:00 Proposed Procedures p Left Total Hip Arthroplasty - Gustavo Ly MD Date/Time: 11/25/24 09:17 Surgeon: Gustavo Ly MD Pre Op Diagnosis: primary OA left hip Patient Data Age: 64 Gender: F Height: 1.57 m Weight: 90.1 kg Last Vital Signs Temp 36.6 C 11/25/24 08:30 Pulse 64 11/25/24 08:30 Resp 14 11/25/24 08:30 BP 134/56 L 11/25/24 08:30 Pulse Ox 99 11/25/24 08:30 O2 Del Method Room Air 11/25/24 08:30 Allergies Allergy/AdvReac Type Severity Reaction Status Date / Time No Known Allergies Allergy Verified 11/25/24 08:42 Home Medications ?Medication ?Instructions ?Recorded ?Confirmed ?Type amlodipine 5 mg tablet 5 mg PO DAILY 06/02/20 11/25/24 History estradiol 0.5 mg tablet 0.5 mg PO HS 06/02/20 11/25/24 History ezetimibe 10 mg tablet (Zetia) 10 mg PO HS 06/02/20 11/25/24 History hydrochlorothiazide 12.5 mg capsule 12.5 mg PO DAILY 06/02/20 11/25/24 History lisinopril 10 mg tablet 10 mg PO HS 06/02/20 11/25/24 History medroxyprogesterone 2.5 mg tablet 2.5 mg PO HS 06/02/20 11/03/24 History metoprolol succinate 50 mg 50 mg PO DAILY 06/02/20 11/25/24 History tablet,extended release 24 hr rosuvastatin 10 mg tablet (Crestor) 10 mg PO HS 06/02/20 11/25/24 History cholecalciferol (vitamin D3) 1,250 1,250 mcg PO .every 10 days 04/16/23 11/25/24 History mcg (50,000 unit) capsule acetaminophen 650 mg 650 mg PO Q12H 11/03/24 11/03/24 History tablet,extended release (Tylenol Arthritis Pain) Laboratory Tests 11/25/24 08:08 Blood Type A Positive Antibody Screen Negative Patient hx anesthesia problems: none Family hx anesthesia problems: none Results Review: All pre-operative results and documents have been reviewed as part of the pre- operative evaluation. [facility] Past Medical History Medical History (Updated 11/25/24 @ 09:18 by Nima Anderson DO) ALEC (obstructive sleep apnea) PVD (peripheral vascular disease) Prediabetes Essential hypertension Mixed hyperlipidemia BMI greater than 30 Social History Social History Smoking packs per day: 0 Smoking cigarettes per day: 0.0 Years smoked: 0 Smoking pack-years: 0.00 Smoking status: Never smoker Second hand tobacco smoke exposure: Yes Alcohol intake: current Drinks per week: 0 Substance use: never Substance use type: does not use Living arrangements: alone Spiritual care concerns: No Anes - Eval Final PreProcedure Day of Procedure 11/25/24 09:17 Patient weight: obese Heart: regular rate and rhythm Lungs: clear to auscultation Airway: Mallampati scale class II Neurological: alert and oriented Last oral intake: >/= 8 hours ASA classification: III Emergent: no Anesthetic plan: proceed Anesthesia type and monitoring: general ETT and standard monitoring Results Review: All pre-operative results and documents have been reviewed as part of the pre- operative evaluation. Informed Consent: The patient's anesthetic plan and its attendant risks and benefits were discussed with the patient/family/POA. Questions were solicited and answers provided to the satisfaction of the patient/family/POA.
[2024-11-25] MEDS: ceFAZolin 2 GM/D5W 50 ML 2 GM/50 ML BAG IVPB (10:04)
[2024-11-25] MEDS: SODIUM CHLORIDE 0.9% IV 37.7 ML, MORPHINE SULFATE INJ (*CRX) 2 MG, ROPivacaine HCL 1% 2... INFILTRATE (10:45)
--- NOTE | 2024-11-25 15:40 | W.PM.PROC2 ---
Procedure Note - Detailed Date of Procedure 11/25/24 Pre-op Diagnosis Left hip degenerative arthritis. Post-op Diagnosis Same Procedure Performed Left Total Hip Arthroplasty Surgeon Gustavo Ly MD Office Chair Assembler Elan Sheppard RN-FA Anesthesia General Findings Advanced hip arthritis. Good bone quality. Description of Procedure The patient was given preoperative antibiotics. A general anesthetic was administered. The patient was carefully placed in the lateral decubitus position on the PEG board. The shoulders and hips were carefully positioned for component and leg length positioning reference. The hip was prepped and draped in the usual sterile fashion. A longitudinal incision was created over the posterior aspect of the greater trochanter. Careful dissection was brought down through the deep fascia with electrocautery. The direct superior approach to the hip was performed. The gluteus beata fibers were split in line with their fibers. The conjoined tendon of the piriformis and obturator internus was removed from the femur and reflected. The sciatic nerve was protected. The capsulotomy was begun at the femur inferiorly along the neck and carried proximally. The capsule was elevated posteriorly inferior and posterior superior. The hip was dislocated. The femoral neck was cut according to preoperative templating measured from the center of the femoral head. The femoral head was removed. The acetabulum was carefully exposed. The labrum was resected. The acetabulum was sequentially reamed to the intended cup size. The cup was impacted into position with excellent press-fit. Typical anatomic landmarks, including the bony contact points as well as the inferior transverse acetabular ligament were used to confirm cup positioning with preoperative templating. Attention was turned to the femur, which was carefully exposed. The hip was reamed and then broached sequentially. Excellent press-fit was obtained with the broach. The hip was trialed. Measurements were utilized, including the lesser trochanter as well as the center of the femoral head and the tip of the trochanter, and excellent assessment of the offset and leg lengths were confirmed. The real component was impacted into position. Trialing confirmed appropriate leg length and offset with soft tissue balancing as well apparent feel of the leg, both at the knee and the heel. The iliotibial band tension was optimal. The conjoint tendon reduced anatomically. The hip was copiously irrigated with pulsatile lavage periodically throughout the procedure. The real components were then assembled and reduced. The hip was stable throughout typical maneuvers, including extension, external rotation to 70 degrees, the position of sleep as well as flexion to 90 degrees with internal rotation past 35 degrees. The shake test confirmed stability without impingement. The capsule was repaired with a running Ethibond suture. Piriformis and obturator internus tendons were repaired to their origin. The deep fascia was repaired with running number 2 barbed suture, followed by 2-0 Stratafix suture and 3-0 Stratafix suture in the dermis. Steri-Strips were placed on the skin, followed by a sterile occlusive dressing. There were no complications. Meticulous hemostasis was maintained with the AquaMantys device. The patient was brought to the recovery room in stable condition. There were no complications. Implants The Accolade II hip stem, 127 degree size 3 , was utilized with excellent press-fit. The 48 mm Trident II acetabular component was impacted with excellent press-fit stability. Standard polyethylene liner the +-2.5, 36 mm Biolox ceramic femoral head was utilized. Estimated Blood Loss 200 Drains No Packing No Pathology None sent Complications No immediate complications Condition Stable Disposition PACU [facility] Billing Surgery - Charge Forward: Surgery Billing
--- NOTE | 2024-11-25 15:56 | SUR.PHASEII ---
1530 - PT and OT working with patient. no vitals signs taken at this time.
[2024-11-25] MEDS: oxyCODONE HCL (*CRX) 5 MG TAB IR PO (16:04)
== END 2024-11-25 16:26 | disposition home or self-care (01) ==
PROVIDERS: PCP Family Medicine; Visit Provider Orthopaedic Surgery
PROC: (CPT 27130; principal; 2024-11-25 10:00)
DX: M16.12 Unilateral primary osteoarthritis, left hip (principal); I10 Essential (primary) hypertension; E78.2 Mixed hyperlipidemia; R73.03 Prediabetes; G47.33 Obstructive sleep apnea (adult) (pediatric); I73.9 Peripheral vascular disease, unspecified; E66.9 Obesity, unspecified; Z68.36 Body mass index [BMI] 36.0-36.9, adult
CPT/HCPCS: 27130; 36415; 73502; 86850; 86900; 86901; 97110; 97162; 97165; 97530; 97535; A9270; J0171; J0690; J1100; J1171; J1885; J2003; J2250; J2270; J2405; J2704; J2795; J3010; J7120

== ENCOUNTER 2025-06-11 14:23 | Outpatient (CLI) | payer MEDICARE, MEDICAID, SELFPAY ==
--- NOTE | ~2025-06-11 | XR_ITS ---
XR abdomen/kub 1V 06/11/2025 14:38 INDICATION: Left lower quadrant pain TECHNIQUE: KUB COMPARISON: None FINDINGS: Bowel gas pattern is normal. There is no evidence of free air, mass, organomegaly, ascites or obstruction. There is a left renal stone measuring 13 mm maximum dimension. Bones appear intact. There is a left total hip arthroplasty. IMPRESSION: 1: Left nephrolithiasis. Reviewed, dictated and finalized at location O. IMPRESSION: 1: Left nephrolithiasis.
== END 2025-06-11 14:24 | disposition home or self-care (01) ==
PROVIDERS: PCP Family Medicine; Visit Provider Nurse Practitioner Family
DX: R10.32 Left lower quadrant pain (principal); R31.9 Hematuria, unspecified; N20.0 Calculus of kidney
CPT/HCPCS: 74018

== ENCOUNTER 2025-07-07 16:36 | Emergency (ER) | payer MEDICARE, MEDICAID, SELFPAY ==
--- NOTE | ~2025-07-07 | CT_ITS ---
EXAMINATION: CT abdomen pelvis wo con, 07/07/2025 17:15 CDT HISTORY: concern for kidney stone COMPARISON: No comparisons available. TECHNIQUE: CT scan of the abdomen and pelvis was performed without IV contrast. One or more of the following dose reduction techniques were used: automated exposure control, adjustment of the mA and/or kV according to patient size, use of iterative reconstruction technique. Unless otherwise stated, incidental findings do not require dedicated follow up imaging FINDINGS: CT abdomen: LUNG BASES: Lung bases are unremarkable. Mild cardiomegaly. LIVER: Mild hepatic steatosis. SPLEEN: Unremarkable, no splenomegaly. KIDNEYS: Right Kidney: Unremarkable. No calculi. No hydronephrosis. Left Kidney: Left kidney there is a calculus in the renal pelvis measuring 8 x 9 mm with mild hydronephrosis, there is no hydroureter. ADRENAL GLANDS: Unremarkable. PANCREAS: There is abnormal density noted within the pancreatic head concerning for underlying pancreatic lesion. GALLBLADDER/BILIARY: Cholelithiasis. STOMACH AND ESOPHAGUS: Small hiatal hernia. BOWEL/MESENTERY: Moderate fecal content. Mild diverticulosis. No colitis or diverticulitis. The appendix is thickened measuring 7 mm although there is no periappendiceal inflammation. Mesentery normal. No dilated small bowel loops. ADENOPATHY/RETROPERITONEUM: No lymphadenopathy. AORTA/VASCULATURE: Normal caliber aorta. FREE FLUID OR FREE AIR: No free fluid.. CT pelvis: SOLID ORGANS/REPRODUCTIVE: No adnexal mass. BLADDER: Within normal limits. OSSEOUS STRUCTURES: Left hip arthroplasty. No sclerotic or lytic lesions. OVERLYING SOFT TISSUES: Unremarkable. IMPRESSION: 1. Mild left-sided obstructive uropathy with a large calculus within the renal pelvis which may be intermittently obstructing the collecting system. 3. Pancreatic head lesion is suspected. Contrast-enhanced MRI recommended Reviewed, dictated and finalized at location P.
[2025-07-07 16:47] VITALS: BP 160/79; PULSE 76; RESP 20; TEMP 37.2; O2SAT 100
--- NOTE | 2025-07-07 16:58 | ED.FEMALEGU ---
HPI - Female Genitourinary General Chief complaint: Urogenital-Female <Belen Morgan APRN - Last Filed: 07/07/25 17:01> Stated complaint: I have a kidney stone <Belen Morgan APRN - Last Filed: 07/07/25 17:01> Time Seen by Provider: 07/07/25 16:59 <Belen Morgan APRN - Last Filed: 07/07/25 17:01> Focused HPI: Patient is a 64-year-old female who presents to the ER with concerns of a kidney stone. She reports she has had left lower quadrant abdominal pain since February but then 1 month ago she started experiencing left flank pain. Patient reports she was able to get into a primary care provider who ordered a CT scan on Sunday, 3 days ago. She reports her PCP called her with results, stating she has a kidney stone, the patient reports she has had difficulty getting in with a urologist. Patient endorses significant left flank pain with the time of examination. She denies any urinary symptoms, hematuria, or recent fevers. Patient endorses a history of kidney stone ?years ago, high blood pressure, and hyperlipidemia. GENERAL: Ill-appearing, well-nourished, and in no acute distress. HEAD: Normocephalic, atraumatic. CHEST: Clear to auscultation. ?No respiratory distress. HEART: Regular rate and rhythm.? NEURO: ?Alert and oriented x3. Patient screened in triage and initial orders placed.? ?Additional care and disposition to be based upon?diagnostic testing and treatment. <Belen Morgan APRN - Last Filed: 07/07/25 17:01> Related Data Home medications: Home Medications ?Medication ?Instructions ?Recorded ?Confirmed ?Last Taken ?Type amlodipine 5 mg tablet 5 mg PO DAILY 06/02/20 06/11/25 11/25/24 History estradiol 0.5 mg tablet 0.5 mg PO HS 06/02/20 06/11/25 11/24/24 History ezetimibe 10 mg tablet (Zetia) 10 mg PO HS 06/02/20 06/11/25 11/24/24 History hydrochlorothiazide 12.5 mg capsule 12.5 mg PO DAILY 06/02/20 06/11/25 11/24/24 History lisinopril 10 mg tablet 10 mg PO HS 06/02/20 06/11/25 11/24/24 History medroxyprogesterone 2.5 mg tablet 2.5 mg PO HS 06/02/20 06/11/25 08/22/24 History metoprolol succinate 50 mg 50 mg PO DAILY 06/02/20 06/11/25 11/25/24 History tablet,extended release 24 hr rosuvastatin 10 mg tablet (Crestor) 10 mg PO HS 06/02/20 06/11/25 11/24/24 History cholecalciferol (vitamin D3) 1,250 1,250 mcg PO .every 10 days 04/16/23 06/11/25 11/21/24 History mcg (50,000 unit) capsule acetaminophen 650 mg 650 mg PO Q12H 11/03/24 06/11/25 Unknown History tablet,extended release (Tylenol Arthritis Pain) <Belen Morgan APRN - Last Filed: 07/07/25 17:01> Allergies/Adverse reactions: Allergies Allergy/AdvReac Type Severity Reaction Status Date / Time No Known Allergies Allergy Verified 07/07/25 19:15 <Belen Morgan JUNIOR TECHNICAL WRITER - Last Filed: 07/07/25 17:01> Review of Systems Review of Systems: All systems reviewed & are unremarkable except as noted in HPI and below <Ela Malik PA-C - Last Filed: 07/07/25 21:45> [facility] Past Medical History Medical History: Medical History ALEC (obstructive sleep apnea) PVD (peripheral vascular disease) Prediabetes Essential hypertension Mixed hyperlipidemia BMI greater than 30 <Belen Morgan APRN - Last Filed: 07/07/25 17:01> Surgical History Surgical History: Surgical History Status post total hip replacement, left (~11/25/24) <Belen Morgan APRN - Last Filed: 07/07/25 17:01> Social History Social History: Social History (Reviewed 06/11/25 @ 13:56 by ESME Ramos Smoking packs per day: 0 Smoking cigarettes per day: 0.0 Years smoked: 0 Smoking pack-years: 0.00 Smoking status: Never smoker Second hand tobacco smoke exposure: Yes Additional smoking assessment comments: DENIES ANY FORM OF TOBACCO USE Alcohol intake: current Drinks per week: 0 Substance use: never Substance use type: does not use Do You Feel Safe in your Home?: Yes Lack of Transportation: No Lack of Food: Never True Current Housing: I Have Housing Concerned About Future Housing: No Difficulty Paying Gas/Electric Bills: No Difficulty Paying for Meds: No Currently Unemployed: No Education: High School Diploma/GED Difficulty w/ Childcare or Family Care: No Living arrangements: alone Spiritual care concerns: No <Belen Morgan APRN - Last Filed: 07/07/25 17:01> Exam Narrative: GENERAL: Well-appearing, well-nourished, and in no acute distress. HEAD: Normocephalic, atraumatic. EYES: EOMI. CHEST: Clear to auscultation. No respiratory distress. No wheezes rales or rhonchi HEART: Regular rate and rhythm. No murmur heard. Normal peripheral pulses. ABDOMEN: Soft, nontender, nondistended, normal active bowel sounds. EXTREMITIES: Normal range of motion. No edema. SKIN: Warm, dry, no rash. NEURO: No focal deficits. Alert and oriented x3. PSYCH: Normal mood and affect <Ela Malik PA-C - Last Filed: 07/07/25 21:45> Course Course Emergency Course: patient updated on her workup and agrees with plan of care <Ela Malik PA-C - Last Filed: 07/07/25 21:45> Consultations Consultation #1: Spoke with Dr. Hernandez about patient and workup. Patient will be given option of staying for stent placement. Or she may follow up outpatient. Their partners at [facility] take patient's insurance <Ela Malik PA-C - Last Filed: 07/07/25 21:45> Date: 07/07/25 <Ela Malik PA-C - Last Filed: 07/07/25 21:45> Vital Signs Vital signs: Vital Signs Temperature 98.9 F 07/07/25 16:47 Pulse Rate 76 07/07/25 16:47 Respiratory Rate 20 07/07/25 16:47 Blood Pressure 160/79 H 07/07/25 16:47 Pulse Oximetry 100 07/07/25 16:47 Oxygen Delivery Room Air 07/07/25 16:47 Temperature 97.8 F 07/07/25 19:10 Pulse Rate 67 07/07/25 19:52 Respiratory Rate 17 07/07/25 19:52 Blood Pressure 161/82 H 07/07/25 19:52 Pulse Oximetry 100 07/07/25 19:52 Oxygen Delivery Room Air 07/07/25 19:10 <Belen Morgan, SHERRY - Last Filed: 07/07/25 17:01> Vital Signs Temperature 98.9 F 07/07/25 16:47 Pulse Rate 76 07/07/25 16:47 Respiratory Rate 20 07/07/25 16:47 Blood Pressure 160/79 H 07/07/25 16:47 Pulse Oximetry 100 07/07/25 16:47 Oxygen Delivery Room Air 07/07/25 16:47 Temperature 97.8 F 07/07/25 19:10 Pulse Rate 67 07/07/25 19:52 Respiratory Rate 17 07/07/25 19:52 Blood Pressure 161/82 H 07/07/25 19:52 Pulse Oximetry 100 07/07/25 19:52 Oxygen Delivery Room Air 07/07/25 19:10 <Ela Malik PA-C - Last Filed: 07/07/25 21:45> MDM - Female Genitourinary MDM Narrative Medical decision making narrative: Patient presents emergency department for left flank pain. Ongoing the last month. She is afebrile nontoxic appearing. Her vitals are stable. Cbc without leukocytosis. Metabolic panel with mild hypokalemia. Potassium was replaced. Magnesium is normal. Urine with 6-10 white blood cells, also many squamous epithelial cells. 51-100 red blood cells. This will be sent for culture. CT abdomen pelvis shows mild left-sided obstructive uropathy with a large calculus within the renal pelvis. Possible pancreatic lesion. patient updated on her workup and agrees with plan of care. She was offered admission for stent placement. She would like to follow up oupatient. She was given warnings to return to the ER <Ela Malik PA-C - Last Filed: 07/07/25 21:45> Differential Diagnosis Differential diagnosis: Likely urinary tract infection and other (kidney stone) <Ela Malik PA-C - Last Filed: 07/07/25 21:45> Lab Data Attestation: I reviewed the patient's lab results. <Ela Malik PA-C - Last Filed: 07/07/25 21:45> Result diagrams: 07/07/25 17:05 07/07/25 17:05 <Belen Morgan APRN - Last Filed: 07/07/25 17:01> Labs: Lab Results 07/07/25 Range/Units 17:05 WBC 9.7 (4.5-10.0) K/mm3 RBC 4.66 (4.2-5.4) M/mm3 Hgb 14.5 (12.0-15.0) g/dL Hct 42.8 (37.0-47.0) % MCV 91.8 (80-100) fl MCH 31.1 (26-34) pg MCHC 33.9 (32-36) g/dl RDW 12.7 (11.5-14.5) % Plt Count 345 (150-375) k/mm3 MPV 8.6 (7.4-10.4) fl Immature Gran % (Auto) 0.2 (0-0.5) % Neut % (Auto) 65.8 (45.5-73.1) % Lymph % (Auto) 22.0 (18.3-44.2) % Mobile % (Auto) 9.0 H (2.6-8.5) % Eos % (Auto) 2.6 (0-4.4) % Baso % (Auto) 0.4 (0.2-1.2) % Lymph # (Auto) 2.13 (0.9-3.2) K/mm3 Mobile # (Auto) 0.9 H (0.1-0.6) K/mm3 Eos # (Auto) 0.3 (0-0.3) K/mm3 Baso # (Auto) 0.0 (0.0-0.1) K/mm3 Abs Immat Gran (auto) 0.02 (0.00-0.031) K/mm3 Absolute Neuts (auto) 6.4 (1.3-6.7) K/mm3 Absolute Nucleated RBC 0.000 (0.0-0.012) K/mm3 Nucleated RBC % 0.0 (0.0-0.2) % Sodium 138 (137-145) mmol/L Potassium 3.3 L (3.4-5.0) mmol/L Chloride 101 (98-107) mmol/L Carbon Dioxide 25 (22-30) mmol/L Anion Gap 12 (4-12) mmol/L BUN 18 H (7-17) mg/dL Creatinine 0.75 (0.7-1.0) mg/dL Estim Creat Clear Calc 68 ml/min Estimated GFR > 60 (59 - ) Glucose 137 H (65-110) mg/dL Calcium 9.1 (8.4-10.2) mg/dL Magnesium 2.2 (1.6-2.3) mg/dL Total Bilirubin 0.7 (0.2-1.3) mg/dL AST 31 (14-36) U/L ALT 33 (6-35) U/L Alkaline Phosphatase 89 (38-126) U/L Total Protein 8.5 H (6.3-8.2) g/dL Albumin 4.7 (3.5-5.1) g/dL Urine Color Dark yellow (Yellow) Urine Appearance Cloudy H (Clear) Urine pH 5.0 (5.0-9.0) Ur Specific Olga 1.029 (1.001-1.035) Urine Protein 1+ H (Negative) mg/dL Urine Glucose (UA) Negative (Negative) mg/dL Urine Ketones Trace H (Negative) mg/dL Ur Blood (Man) 2+ H (Negative) Urine Nitrate Negative (Negative) Urine Bilirubin Negative (Negative) Urine Urobilinogen 1.0 (<2.0) mg/dL Add Ur Microanalysis Reviewed Leukocyte Esterase Rfl Trace H (Negative) EMILIANO/UL Urine RBC 51-100 H (0-2) /hpf Urine WBC 6-10 H (0-3) /hpf Ur Squamous Epith Cells Many H (Few) /hpf Calcium Oxalate Crystal Present (None) /hpf Urine Bacteria None seen /hpf Urine Casts 6-10 Urine Mucus Present /lpf <Belen LQuoc Morgan, JUNIOR TECHNICAL WRITER - Last Filed: 07/07/25 17:01> Lab Results 07/07/25 Range/Units 17:05 WBC 9.7 (4.5-10.0) K/mm3 RBC 4.66 (4.2-5.4) M/mm3 Hgb 14.5 (12.0-15.0) g/dL Hct 42.8 (37.0-47.0) % MCV 91.8 (80-100) fl MCH 31.1 (26-34) pg MCHC 33.9 (32-36) g/dl RDW 12.7 (11.5-14.5) % Plt Count 345 (150-375) k/mm3 MPV 8.6 (7.4-10.4) fl Immature Gran % (Auto) 0.2 (0-0.5) % Neut % (Auto) 65.8 (45.5-73.1) % Lymph % (Auto) 22.0 (18.3-44.2) % Mobile % (Auto) 9.0 H (2.6-8.5) % Eos % (Auto) 2.6 (0-4.4) % Baso % (Auto) 0.4 (0.2-1.2) % Lymph # (Auto) 2.13 (0.9-3.2) K/mm3 Mobile # (Auto) 0.9 H (0.1-0.6) K/mm3 Eos # (Auto) 0.3 (0-0.3) K/mm3 Baso # (Auto) 0.0 (0.0-0.1) K/mm3 Abs Immat Gran (auto) 0.02 (0.00-0.031) K/mm3 Absolute Neuts (auto) 6.4 (1.3-6.7) K/mm3 Absolute Nucleated RBC 0.000 (0.0-0.012) K/mm3 Nucleated RBC % 0.0 (0.0-0.2) % Sodium 138 (137-145) mmol/L Potassium 3.3 L (3.4-5.0) mmol/L Chloride 101 (98-107) mmol/L Carbon Dioxide 25 (22-30) mmol/L Anion Gap 12 (4-12) mmol/L BUN 18 H (7-17) mg/dL Creatinine 0.75 (0.7-1.0) mg/dL Estim Creat Clear Calc 68 ml/min Estimated GFR > 60 (59 - ) Glucose 137 H (65-110) mg/dL Calcium 9.1 (8.4-10.2) mg/dL Magnesium 2.2 (1.6-2.3) mg/dL Total Bilirubin 0.7 (0.2-1.3) mg/dL AST 31 (14-36) U/L ALT 33 (6-35) U/L Alkaline Phosphatase 89 (38-126) U/L Total Protein 8.5 H (6.3-8.2) g/dL Albumin 4.7 (3.5-5.1) g/dL Urine Color Dark yellow (Yellow) Urine Appearance Cloudy H (Clear) Urine pH 5.0 (5.0-9.0) Ur Specific Olga 1.029 (1.001-1.035) Urine Protein 1+ H (Negative) mg/dL Urine Glucose (UA) Negative (Negative) mg/dL Urine Ketones Trace H (Negative) mg/dL Ur Blood (Man) 2+ H (Negative) Urine Nitrate Negative (Negative) Urine Bilirubin Negative (Negative) Urine Urobilinogen 1.0 (<2.0) mg/dL Add Ur Microanalysis Reviewed Leukocyte Esterase Rfl Trace H (Negative) EMILIANO/UL Urine RBC 51-100 H (0-2) /hpf Urine WBC 6-10 H (0-3) /hpf Ur Squamous Epith Cells Many H (Few) /hpf Calcium Oxalate Crystal Present (None) /hpf Urine Bacteria None seen /hpf Urine Casts 6-10 Urine Mucus Present /lpf <MAJO Huntley Last Filed: 07/07/25 21:45> Imaging Data Radiologist's impression: ITS Impressions Abdomen/Pelvis CT 07/07/25 17:43 IMPRESSION: 1. Mild left-sided obstructive uropathy with a large calculus within the renal pelvis which may be intermittently obstructing the collecting system. 3. Pancreatic head lesion is suspected. Contrast-enhanced MRI recommended <MAJO Huntley Last Filed: 07/07/25 21:45> Critical Care Time Critical Care Time Critical Care Time: No <MAJO Huntley Last Filed: 07/07/25 21:45> Discharge Plan Discharge Clinical Impression: Kidney stone on left side, Pancreatic lesion <Belen Morgan APRN - Last Filed: 07/07/25 17:01> Patient Disposition: Home <Belen Morgan APRN - Last Filed: 07/07/25 17:01> Condition: Stable <Belen Morgan APRN - Last Filed: 07/07/25 17:01> Instructions: Kidney Stones (ED), Lithotripsy (DC) <Belen Morgan APRN - Last Filed: 07/07/25 17:01> Additional Instructions: Return to the ER if you experience fever, abdominal pain with nausea and vomiting, you are unable to keep down liquids or solids, pain or burning with urination, or any other symptoms that are concerning to you Remain well hydrated. Pain medication as needed. Take oral antibiotic as prescribed Follow up with urology. [facility] in [place] The radiologist possibly sees a lesion on your pancreas. Follow up with your PCP to have an MRI of your abdomen for further evaluation <Belen Morgan APRN - Last Filed: 07/07/25 17:01> Patient Language: Hungarian <Belen Morgan APRN - Last Filed: 07/07/25 17:01> Prescriptions: New hydrocodone-acetaminophen 5-325 mg tablet 1 tablet PO Q6H PRN (Reason: pain) Qty: 20 0RF cephalexin 500 mg capsule 500 mg PO Q12H 7 Days Qty: 14 0RF No Action ezetimibe [Zetia] 10 mg tablet 10 mg PO HS medroxyprogesterone 2.5 mg tablet 2.5 mg PO HS estradiol 0.5 mg tablet 0.5 mg PO HS rosuvastatin [Crestor] 10 mg tablet 10 mg PO HS lisinopril 10 mg tablet 10 mg PO HS hydrochlorothiazide 12.5 mg capsule 12.5 mg PO DAILY metoprolol succinate 50 mg tablet extended release 24 hr 50 mg PO DAILY amlodipine 5 mg tablet 5 mg PO DAILY cholecalciferol (vitamin D3) 1,250 mcg (50,000 unit) capsule 1,250 mcg PO .every 10 days Rx Instructions: takes every 10 days. acetaminophen [Tylenol Arthritis Pain] 650 mg tablet extended release 650 mg PO Q12H <Belen Morgan, SHERRY - Last Filed: 07/07/25 17:01> Follow-up/Referrals: Juan Hernandez MD [Physician, Urology] Tuckre Pacheco MD [Primary Care Provider, Family Practice] <Belen Morgan, SHERRY - Last Filed: 07/07/25 17:01>
[2025-07-07 17:13] LABS: Hematocrit 42.8 % (37.0-47.0); Hemoglobin 14.5 g/dL (12.0-15.0); Immature Granulocyte Percent A 0.2 % (0-0.5); Lymphocytes Absolute Auto 2.13 K/mm3 (0.9-3.2); Mean Corpuscular HGB Conc 33.9 g/dl (32-36); Mean Corpuscular Hemoglobin 31.1 pg (26-34); Mean Corpuscular Volume 91.8 fl (80-100); Nucleated Red Blood Cells Absolute Auto 0.000 K/mm3 (0.0-0.012); Nucleated Red Blood Cells Perc 0.0 % (0.0-0.2); Platelet Count Result 345 k/mm3 (150-375); Red Blood Count 4.66 M/mm3 (4.2-5.4); White Blood Count 9.7 K/mm3 (4.5-10.0)
[2025-07-07 17:24] LABS: Alanine Aminotransferase 33 U/L (6-35); Albumin Level 4.7 g/dL (3.5-5.1); Alkaline Phosphatase 89 U/L (38-126); Anion Gap 12 mmol/L (4-12); Aspartate Amino Transferase 31 U/L (14-36); Bilirubin,Total 0.7 mg/dL (0.2-1.3); Blood Urea Nitrogen 18 mg/dL (7-17); Calcium 9.1 mg/dL (8.4-10.2); Carbon Dioxide 25 mmol/L (22-30); Chloride 101 mmol/L (98-107); Estimated CRCL calculation 68 ml/min; Estimated Glomerular Filt Rate > 60; Glucose 137 mg/dL (65-110); Potassium 3.3 mmol/L (3.4-5.0); Sodium 138 mmol/L (137-145); Total Protein 8.5 g/dL (6.3-8.2)
[2025-07-07 17:31] LABS: Add Urine Microscopic? YES; Appearance Urine Cloudy (Clear); Glucose Urine UA Negative (Negative); Leukocyte Esterase Ur Trace LEU/UL (Negative); Need Manual Microscopic Reviewed; Nitrate Urine Negative (Negative); Specific Grav Ur 1.029 (1.001-1.035)
[2025-07-07 19:10] VITALS: BP 158/79; PULSE 76; RESP 17; TEMP 36.6; O2SAT 96
[2025-07-07 19:16] VITALS: BP 145/60; PULSE 65; RESP 17; O2SAT 100
--- OUTSIDE RECORDS SUMMARY | 2025-07-07 19:26 | XMS_ITS | Clinical Summary ---
Author Organization [facility] Address [address] [place] [id number] Care Team Providers Care Technology And Engineering Teacher Name Role Phone Summer Avila Primary Care Provider Encounters Date Type Department Care Team Description 07/03/2025 10:37 AM CDT - 07/03/2025 11:59 PM CDT Hospital Encounter [place] [phone] Calculus of kidney Discharge Disposition: Discharge to home or self care from Last 3 Months Social History Tobacco Use Types Packs/Day Years Used Date Smoking Tobacco: Never Assessed Comments Unknown Sex and Gender Information Value Date Recorded Sex Assigned at Not on file Legal 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 Gender Identity Not on file Sexual Orientation Not on file Plan of Treatment Health Maintenance Due Date Last Done Comments Breast Cancer Screening-Mammogram 1959 Cervical Cancer Screening 1959 Colon Cancer Screening-Colonoscopy 1959 Depression Screening 1959 Fall Risk Assessment 1959 Hepatitis C Screening 1959 Osteoporosis Screening-Bone Density Scan 1959 DTaP/Tdap/Td Vaccine (1 - Tdap) 1970 Hepatitis B Screening 1977 Pneumococcal vaccine 65+ (1 of 1 - PCV) 2009 Well Visit 65+ 2024 Covid-19 Vaccine (2023-2 5 season) 2025 07/12/2024, 07/13/2023, 07/28/2022, Additional history exists Influenza Vaccine (#1) 2025 07/27/2023 Zoster Vaccine Completed 06/15/2023, 01/10/2023 Procedures Procedure Name Priority Date/Time Associated Diagnosis Comments CT ABDOMEN PELVIS WO CONTRAST Schedule VAN, Read VAN (Appt Today, Awaiting Results) 07/03/2025 10:48 AM CDT Calculus of kidney from Last 3 Months Results * CT Abdomen Pelvis WO Contrast (07/03/2025 10:48 AM CDT) Anatomical Region Laterality Modality Body N/A Computed Tomogra phy 07/03/2025 11:3 1 AM CDT Narrative 07/03/2025 11:41 AM CDT EXAM DESCRIPTION: CT ABDOMEN PELVIS WO CONTRAST REASON FOR STUDY: Left flank pain and left lower quadrant pain for 3 weeks. Microhematuria. History of nephrolithiasis. TECHNIQUE: CT scan of the abdomen and pelvis performed without intravenous and without oral contrast using helical scanning technique. Reconstructed coronal and sagittal MPR images reviewed. All images stored on PACS. Automated exposure control was used as a dose optimization technique for this examination. COMPARISON: None FINDINGS: The sensitivity for detection of visceral lesions is diminished without the use of intravenous contrast. LOWER CHEST: No significant pulmonary abnormalities. No pleural effusion. LIVER: No focal liver lesion. GALLBLADDER: Cholelithiasis. No pericholecystic inflammatory change. BILE DUCTS: No intrahepatic or extrahepatic ductal dilatation. SPLEEN: Normal size. No focal lesions. PANCREAS: No masses. No adjacent inflammation or peripancreatic fluid collections. No pancreatic ductal dilatation. ADRENALS: Normal. KIDNEYS/URINARY TRACT: There is a 1 x 0.7 cm calculus in the left renal pelvis with trace hydronephrosis. No right-sided hydronephrosis. Bladder is partially obscured by streak artifact but no gross abnormality is seen. GI: Mild sigmoid colon diverticulosis. No diverticulitis. Probable shortened appendix (coronal image 46). No associated fat stranding. No dilated loops of bowel to suggest obstruction. PERITONEUM: No ascites or free air. RETROPERITONEUM: No mass or lymphadenopathy. REPRODUCTIVE: No significant abnormality. VASCULATURE: Atherosclerotic calcification of the abdominal aorta without aneurysm. MUSCULOSKELETAL: Left hip prosthesis is only partially included. Mild thoracolumbar spondylosis. OTHER: No other abnormality. IMPRESSION: 1. There is a 1 x 0.7 cm calculus in the left renal pelvis with trace hydronephrosis. 2. Cholelithiasis. No pericholecystic inflammatory change. THIS IS AN ELECTRONICALLY VERIFIED FINAL REPORT 07/03/2025 11:41 AM - Electronically signed by Roberto Kellogg M.D. LB T: Report ID: [id number] Reading Location: [id number] Procedure Note Roberto Kellogg MD - 07/03/2025 EXAM DESCRIPTION: CT ABDOMEN PELVIS WO CONTRAST REASON FOR STUDY: Left flank pain and left lower quadrant pain for 3weeks. Microhematuria. History of nephrolithiasis. TECHNIQUE: CT scan of the abdomen and pelvis performed without intravenousand without oral contrast using helical scanning technique. Reconstructed coronal and sagittal MPR images reviewed. All images stored on PACS.Automated exposure control was used as a dose optimization technique for this examination. COMPARISON: None FINDINGS: The sensitivity for detection of visceral lesions is diminished withoutthe use of intravenous contrast. LOWER CHEST: No significant pulmonary abnormalities. No pleuraleffusion. LIVER: No focal liver lesion. GALLBLADDER: Cholelithiasis. No pericholecystic inflammatory change. BILE DUCTS: No intrahepatic or extrahepatic ductal dilatation. SPLEEN: Normal size. No focal lesions. PANCREAS: No masses. No adjacent inflammation or peripancreatic fluid collections. No pancreatic ductal dilatation. ADRENALS: Normal. KIDNEYS/URINARY TRACT: There is a 1 x 0.7 cm calculus in the left renal pelvis with trace hydronephrosis. No right-sided hydronephrosis.Bladder is partially obscured by streak artifact but no gross abnormality is seen. GI: Mild sigmoid colon diverticulosis. No diverticulitis. Probable shortened appendix (coronal image 46). No associated fat stranding. No dilated loops of bowel to suggest obstruction. PERITONEUM: No ascites or free air. RETROPERITONEUM: No mass or lymphadenopathy. REPRODUCTIVE: No significant abnormality. VASCULATURE: Atherosclerotic calcification of the abdominal aortawithout aneurysm. MUSCULOSKELETAL: Left hip prosthesis is only partially included. Mild thoracolumbar spondylosis. OTHER: No other abnormality. IMPRESSION: 1. There is a 1 x 0.7 cm calculus in the left renal pelvis with trace hydronephrosis. 2. Cholelithiasis. No pericholecystic inflammatory change. THIS IS AN ELECTRONICALLY VERIFIED FINAL REPORT 07/03/2025 11:41 AM - Electronically signed by Rboerto Kellogg M.D. 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
[2025-07-07] MEDS: MORPHINE SULFATE (*CRX) 4 MG/ML INJ IV PUSH (19:50)
[2025-07-07] MEDS: ONDANSETRON INJ 4 MG/2 ML VIAL IV PUSH (19:51)
[2025-07-07 19:52] VITALS: BP 161/82; PULSE 67; RESP 17; O2SAT 100
[2025-07-07 20:28] LABS: Magnesium 2.2 mg/dL (1.6-2.3)
[2025-07-07] MEDS: POTASSIUM CHLORIDE 20 MEQ ER TABLET 40 MEQ PO (20:59)
[2025-07-07] MEDS: HYDROcodone/acetaminophen (*CRX) 5-325 MG TABLET 1 TAB PO (22:00)
[2025-07-07 22:17] VITALS: BP 126/63; PULSE 60; RESP 17; O2SAT 100
== END 2025-07-07 22:18 | disposition home or self-care (01) ==
PROVIDERS: Registered Nurse; Emergency Provider Physician Assistant; PCP Family Medicine
DX: N20.0 Calculus of kidney (principal); K86.89 Other specified diseases of pancreas; E78.5 Hyperlipidemia, unspecified; I10 Essential (primary) hypertension
CPT/HCPCS: 36415; 74176; 80053; 81001; 83735; 85025; 96374; 96375; 99284; A9270; J2270; J2405

== ENCOUNTER 2025-09-23 17:15 | Emergency (ER) | payer MEDICARE, MEDICAID, SELFPAY ==
--- NOTE | ~2025-09-23 | CT_ITS ---
CT abdomen pelvis wo con INDICATION:left flank pain, recent stent removal for stone . COMPARISON: None. TECHNIQUE: Axial 2.5 mm images of the abdomen were obtained without IV or oral contrast. Diagnostic sensitivity is limited due to lack of IV contrast. FINDINGS: The lung bases are clear. The liver parenchyma is unremarkable. No intrahepatic mass or ductal dilatation is evident. Cholelithiasis is noted. There is no pericholecystic fluid. There is no gallbladder wall thickening. The pancreas and spleen are normal in appearance. The adrenal glands are symmetric in size. There is mild left hydronephrosis and hydroureter with perinephric and periureteral stranding. Bladder wall is thickened and there is adjacent induration. Findings may be related to infectious process. There is no obstructive stone. Right kidneys unremarkable. The stomach and bowel loops are unremarkable. The bladder and rectum are normal. No free intraperitoneal fluid or air is evident. There is no significant retroperitoneal lymphadenopathy. The aorta, visceral vessels and renal arteries demonstrate normal caliber. The lower thoracic and lumbar vertebrae are in normal alignment. IMPRESSION: Left hydronephrosis with hydroureter and perinephric and periureteral stranding may represent infectious process. Correlation with urinalysis is recommended. There is no obstructive stone. Cholelithiasis without CT evidence of acute cholecystitis. Colonic diverticulosis without evidence of acute diverticulitis. All CT scans at this facility are performed using low dose modulation techniques as appropriate to perform exam including the following: automated exposure control; use of iterative reconstruction technique; adjustment of the mA and/or kV according to patient size (this includes techniques or standardized protocols for targeted exams where dose is matched to indication/reason for exam). Reviewed, dictated and finalized at location [facility] [employer] IMPRESSION: Left hydronephrosis with hydroureter and perinephric and periureteral stranding may represent infectious process. Correlation with urinalysis is recommended. There is no obstructive stone. Cholelithiasis without CT evidence of acute cholecystitis. Colonic diverticulosis without evidence of acute diverticulitis. All CT scans at this facility are performed using low dose modulation techniqu es as appropriate to perform exam including the following: automated exposure c ontrol; use of iterative reconstruction technique; adjustment of the mA and/or kV according to patient size (this includes techniques or standardized protocol s for targeted exams where dose is matched to indication/reason for exam).
[2025-09-23 17:56] VITALS: BP 119/80; PULSE 80; RESP 16; TEMP 36.6; O2SAT 98
--- OUTSIDE RECORDS SUMMARY | 2025-09-23 18:43 | XMS_ITS | Clinical Summary ---
Author Organization [facility] Address [address] [place] [address] Phone Care Team Providers Care Certified Massage Therapist Name Role Phone Tucker Pacheco MD Primary Care Provider [phone] Micha Bo MD Unavailable [phone] Allergies No known active allergies Medications amLODIPine (NORVASC) 5 MG Tablet Take 5 mg by mouth daily. 5 Active cephALEXin (KEFLEX) 500 MG Capsule TAKE 1 CAPSULE BY MOUTH EVERY 12 HOURS FOR 1 WEEK 5 Active ergocalciferol (VITAMIN D) 53956 UNIT Capsule TAKE 1 CAPSULE BY MOUTH 3 TIMES PER MONTH 5 Active estradiol (ESTRACE) 0.5 MG Tablet Take 0.5 mg by mouth daily. 5 Active lisinopril (PRINIVIL, ZESTRIL) 10 MG Tablet Take 10 mg by mouth nightly. 5 Active HYDROcodone-tracy taminophen (NORCO) 5-325 MG Tablet nightly as needed. 5 Active hydroCHLOROthia zide (MICROZIDE) 12.5 MG Capsule Take 1 Capsule by mouth daily. 5 Active medroxyPROGESTE Fransico (PROVERA) 2.5 MG Tablet take 1 tablet by mouth every night at bedtime 5 Active rosuvastatin (CRESTOR) 10 MG Tablet Take 10 mg by mouth daily. 5 Active metoprolol Succinate (TOPROL-XL) 50 MG TABLET SR 24 HR Take 50 mg by mouth daily. 5 Active ezetimibe (ZETIA) 10 MG Tablet Take 1 Tablet by mouth daily. Active HYDROcodone-tracy taminophen (NORCO) 5-325 MG TabletIndicatio ns:Kidney stone Take 1 Tablet by mouth every 6 hours as needed for Moderate or more severe pain. 15 Tablet 5 Active ciprofloxacin (CIPRO) 500 MG Tablet Take 1 Tablet by mouth 2 times daily for 3 days. 6 Tablet 5 08/28/20 25 cephALEXin (KEFLEX) 500 MG Capsule Take 1 Capsule by mouth 2 times daily for 7 days. 14 Capsule 5 09/17/20 Hospital, Clinic, or Other Facility Administered Medication Ordered Dose Route Frequency Start Date End Date Status levoFLOXacin (LEVAQUIN) tablet 750 mgIndications:Urinary Tract Infection 750 mg PO ONCE 09/11/2025 09/11/2025 Ended Encounters Date Type Department Care Team Description 09/11/2025 1:15 PM DESIZING MACHINE OPERATOR Procedure Visit [facility] [address] [place] [address] Micha Bo MD UTI symptoms (Primary Dx); Kidney stone Discharge Disposition: Discharged to home or Selfcare 09/10/2025 Results Follow-Up [facility] [address] [place] [address] Micha Bo MD CULTURE, URINE 09/09/2025 Results Follow-Up [facility] [address] [place] [address] Micha Bo MD XR ABDOMEN KUB FLAT PLATE 09/08/2025 2:02 PM DESIZING MACHINE OPERATOR - 09/08/2025 11:59 PM DESIZING MACHINE OPERATOR Hospital Encounter [facility] Diagnostic Radiology [address] [place] [address] Micha Bo MD Discharge Disposition: Discharged to home or Selfcare 09/08/2025 2:00 PM DESIZING MACHINE OPERATOR Clinical Support [facility] [address] [place] [address] [facility] UTI symptoms (Primary Dx) Discharge Disposition: Discharged to home or Selfcare 09/08/2025 Travel 09/07/2025 Telephone [facility] [address] [place] [address] Micha Bo MD 08/25/2025 1:15 PM DESIZING MACHINE OPERATOR Anesthesia Event [facility] Periop [address] [place] [address] Ricky Valdivia APRN, SWIMMING COACH OR INSTRUCTOR Diane, Alexander Darling APRN, SWIMMING COACH OR INSTRUCTOR 08/25/2025 12:10 PM DESIZING MACHINE OPERATOR - 08/25/2025 1:40 PM DESIZING MACHINE OPERATOR Surgery [facility] Periop [address] [place] [address] Micha Bo MD LEFT URETEROSCOPY WITH HOLMIUM LASER LITHOTRIPSY,STONE MANIPULATION 08/25/2025 9:38 AM DESIZING MACHINE OPERATOR - 08/25/2025 4:25 PM DESIZING MACHINE OPERATOR Hospital Encounter [facility] Preop/Pacu II [address] [place] [address] Micha Bo MD Discharge Disposition: Discharged to home or Selfcare 08/25/2025 Travel 08/10/2025 Travel 07/15/2025 10:53 AM CDT - 07/15/2025 11:59 PM CDT Hospital Encounter [facility] Radiology Resources [address] [place] [address] Provider, Not On File Discharge Disposition: Discharged to home or Selfcare 07/14/2025 Telephone [facility]END[facility] [address] [place] [address] Micha Bo MD Surgery 07/10/2025 1:00 PM CDT Office Visit [facility]END[facility] TO [facility] [address] [place] [address] Micha Bo MD Kidney stone (Primary Dx) Discharge Disposition: Discharged to home or Selfcare 07/10/2025 Travel from Last 3 Months Immunizations Immunization Administration Dates Next Due Covid-19, Mrna, Lnp-s, Pf, Luis Fernando-sucrose, 30 Mcg/0.3 Ml ([employer]) 07/12/2024 Influenza Vaccine, MDCK,quad rivalent, pres free 07/27/2023 Influenza Vaccine, Quadrivalent, PF 09/07,08/10/2022,08/09/2021,2019 Zoster Vaccine Recombinant 06/15/2023,01/10/2023 Family History Medical History Relation Name Comments Heart Attack Father Heart Disease Father Chronic Obstructive Pulmonary Disease Mother Relation Name Status Comments Father Mother Social History Tobacco Use Types Packs/Day Years Used Date Smoking Tobacco: Never Smokeless Tobacco: Never Tobacco Cessation:Counseling Given: Not Answered Alcohol Use Standard Drinks/Week Comments Yes 0 (1 standard drink = 0.6 oz pur e alcohol) Rare Sexually Active Control Partners Comments Not Currently Comments No Sex and Gender Information Value Date Recorded Sex Assigned at Not on file Legal Sex Female 8:08 PM CDT Gender Identity Not on file Sexual Orientation Not on file Last Filed Vital Signs Vital Sign Reading Time Taken Comments Blood Pressure 131/82 09/11/2025 1:33 PM DESIZING MACHINE OPERATOR Pulse 73 09/11/2025 1:33 PM DESIZING MACHINE OPERATOR Temperature 37.1 C (98.7 F) 08/25/2025 4:02 PM DESIZING MACHINE OPERATOR Respiratory Rate 16 09/11/2025 1:33 PM DESIZING MACHINE OPERATOR Oxygen Saturation 96% 09/11/2025 1:33 PM DESIZING MACHINE OPERATOR Inhaled Oxygen Concentration - - Weight 92.1 kg (203 lb) 09/11/2025 1:33 PM DESIZING MACHINE OPERATOR Height 157.5 cm (5' 2) 09/11/2025 1:33 PM DESIZING MACHINE OPERATOR Body Mass Index 37.13 09/11/2025 1:33 PM DESIZING MACHINE OPERATOR Plan of Treatment Upcoming Encounters Date Type Department Care Team (Late st Contact Info) Description 10/23/2025 1:15 PM DESIZING MACHINE OPERATOR Office Visit [facility] [address] [place] [address] Micha Bo MD [address] [address] [place] [address] Health Maintenance Due Date Last Done Comments DEXA Bone Density 1959 Hepatitis C Virus (HCV) Screening 1959 Mammogram 1959 TdaP Immunization 1959 Pap Smear 1980 Cervical Cancer Screening (CCS) 1989 HPV/Cotest 1989 Cologuard 2004 Colonoscopy 2004 Colorectal Cancer Screening 2004 Immunochemical Fecal Occult Blood 2004 Pneumococcal Immunization (50+ years) (1 of 1 - PCV) 2009 Welcome to Medicare (IPPE) G0402 10/08/2024 Influenza Immunization (#1) 06/08/202509/07, 07/27/2023, 08/10/2022, Additional history exists SARS-COV-2 Immunization ( season) 2025 07/12/2024, 07/13/2023, 07/28/2022, Additional history exists Respiratory Syncytial Virus (RSV) Immunization (Adult) (1 - 1-dose 75+ series) 2034 Zoster Immunization Completed 06/15/2023, 3 Hepatitis B Immunization Aged Out No longer eligible based on patient's age to complete this topic Human Papillomavirus (HPV) Immunization (No Doses Required) Completed Meningococcal Immunization (ACWY) Aged Out No longer eligible based on patient's age to complete this topic Rotavirus Immunization Aged Out No lo nger eligible based on patient's age to complete this topic Medical Devices Implanted Type Area Cleat Feeder Device Identifier Shelf Expiration Date Model / Serial / Lot Stent Ureteral 6fr 2.1fr 24cm 2 Pigtail Curve 2 Durometer Taper Tip Loprfl Graduated Polaris Ultra - [id number] Implanted:Qty: 1 on 08/25/2025 by Micha Bo MD at [facility] IMPLANT Breath[employer]yes 01/28/2028 [id number] / [id number] / [id number] Description:Knowta SCIENTIF[employer] C POLARIS ULTRA STRINGS REMOVED FROM STENT PER DR. BO Procedures Procedure Name Priority Date/Time Associated Diagnosis Comments POCT UA AUTOMATED W/O MICRO Routine 09/11/2025 1:18 PM DESIZING MACHINE OPERATOR UTI symptoms CYSTOSCOPY,REMV CALCULUS,SIMPLE Routine 09/11/2025 1:15 PM DESIZING MACHINE OPERATOR Kidney stone XR ABDOMEN KUB FLAT PLATE Routine 09/08/2025 2:18 PM DESIZING MACHINE OPERATOR Kidney stone CULTURE, URINE Routine 09/08/2025 1:57 PM DESIZING MACHINE OPERATOR UTI symptoms XR SURGICAL EXAM Routine 08/25/2025 1:58 PM DESIZING MACHINE OPERATOR PATHOLOGY SURGICAL Routine 08/25/2025 1: 53 PM DESIZING MACHINE OPERATOR LMA Routine 08/25/2025 1:33 PM DESIZING MACHINE OPERATOR CYSTO/URETERO W/LITHOTRIPSY 08/25/2025 12:55 PM DESIZING MACHINE OPERATOR KIDNEY STONE Special Needs Hx: HTN, ALEC 5' 2 195# CYSTOSCOPY,INSERT URETERAL STENT 08/25/2025 12:55 PM DESIZING MACHINE OPERATOR KIDNEY STONE Special Needs Hx: HTN, ALEC 5' 2 195# CYSTOSCOPY,INSERT URETHRAL STENT 08/25/2025 12:55 PM DESIZING MACHINE OPERATOR KIDNEY STONE Special Needs Hx: HTN, ALEC 5' 2 195# CYSTO/URETERO W/LITHOTRIPSY 08/25/2025 12:55 PM DESIZING MACHINE OPERATOR KIDNEY STONE Special Needs Hx: HTN, ALEC 5' 2 195# CYSTO/URETERO/PYEL OSCOPY W/LITHOTRIPSY 08/25/2025 12:55 PM DESIZING MACHINE OPERATOR KIDNEY STONE Special Needs Hx: HTN, ALEC 5' 2 195# CYSTO/URETEROSCOPY ,TX INTRARENAL STRICT 08/25/2025 12:55 PM DESIZING MACHINE OPERATOR KIDNEY STONE Special Needs Hx: HTN, ALEC 5' 2 195# CYSTO/URETEROSCOPY ,TX URET/PELV STRICT 08/25/2025 12:55 PM DESIZING MACHINE OPERATOR KIDNEY STONE Special Needs Hx: HTN, ALEC 5' 2 195# CYSTO/URETEROSCOPY ,TX URETER STRICT 08/25/2025 12:55 PM DESIZING MACHINE OPERATOR KIDNEY STONE Special Needs Hx: HTN, ALEC 5' 2 195# CT REFERENCE IMAGES FOR IMAGE IMPORT Routine 07/15/2025 10:53 AM CDT CULTURE, URINE Routine 07/10/2025 1:48 PM CDT Kidney stone POCT UA AUTOMATED W/O MICRO Routine 07/10/2025 1:04 PM CDT Kidney stone KALEB,POST-VOID RES,US,NON-IMAGING Routine 07/10/2025 1:00 PM CDT Kidney stone CT - ABDOMEN/PELVIS 07/07/2025 12:00 AM CDT from Last 3 Months Results * (ABNORMAL) POCT UA AUTOMATED W/O MICRO (09/11/2025 1:18 PM DESIZING MACHINE OPERATOR) Only the most recent of2 resultswithin the time period is included. POC UA SPECIFIC GRAVITY 1.025 URINE PH 5.0 5.0 - 9.0 POC URINE LEUKOCYTES 500 /uL(A) Negative Zac/uL POC URINE NITRITE Positive(A) Negative POC URINE PROTEIN 500 mg/dL(A) Negative mg/dL POC URINE GLUCOSE Norm Negative, Norm mg/dL POC URINE KETONE Negative Negative mg/dL POC URINE UROBILINOGEN 1 E.U./dL (mg/dL) Norm, 0.2 E.U./dL (mg/dL), 1 E.U./dL (mg/dL) POC URINE BILIRUBIN 1 mg/dL(A) Negative mg/dL POC URINE BLOOD INSTRUMENT 250 Raffy/uL(A) Negative Raffy/uL POC URINE COLOR Dark Yellow POC URINE CLARITY Very Cloudy Urine 09/11/2025 1:18 PM DESIZING MACHINE OPERATOR Micha Will MD POINT OF CARE TESTING (MANUAL) Final Result * CYSTOSCOPY,REMV CALCULUS,SIMPLE (09/11/2025 1:15 PM DESIZING MACHINE OPERATOR) Narrative Micha Bo MD - 09/11/2025 1:15 PM DESIZING MACHINE OPERATOR Micha Bo MD 09/11/2025 3:32 PM Cystoscopy Procedure Note Date of Visit: 09/11/2025 Cystourethroscopy and stent removal Porsha Sinclair is a 64 y.o. female who presents for cystoscopy and removal of an indwelling JJ stent on the left side that was placed following ureteroscopy. Indication(s): Indwelling ureteral stent. Verbal and written consent was obtained and a Time Out was performed. Procedure: The patient was positioned in the supine position. The patient was then placed in the dorsal lithotomy position with all pressure points padded again. The urethra and genitals were prepped in the usual fashion. Local anesthesia with 1% lidocaine jelly was administered transurethrally. A well lubricated 16 Nigerien flexible cystoscope was introduced transurethrally. Findings listed below. Through this, flexible stent graspers were advanced through the scope. The distal curl of the stent was visualized. It was pulled and removed without resistance. It was removed intact. Both curls were visualized. There was no debris on the stent noted. At the start of the procedure, the patient was given levofloxacin x1 antibiotic prophylaxis. Findings: Urethra: No strictures, lesions, or stones Bladder: No stones, tumors, lesions. No trabeculations, diverticuli. Bilateral UO in orthotopic position with clear efflux Stent: Removed intact with both curls visualized outside the body. Stent discarded The patient tolerated the procedure well. Specimen sent: None Plan: See progress note [facility] Nabil Bo MD [place] - SURGERY Final Result * XR ABDOMEN KUB FLAT PLATE (09/08/2025 2:18 PM DESIZING MACHINE OPERATOR) Anatomical Region Laterality Modality Abdomen N/A Digital Radiogra phy 09/08/2025 2:18 PM DESIZING MACHINE OPERATOR Narrative 09/08/2025 4:50 PM DESIZING MACHINE OPERATOR DICTATING PHYSICIAN: Gibson Velazco DO EXAM: XR ABDOMEN KUB FLAT PLATE; 09/08/2025 2:18 PM HISTORY: Follow-up left kidney stones COMPARISON: CT 07/07/2025 FINDINGS: Supine view of the abdomen was obtained. Bowel gas pattern is normal. Left ureteral stent present. I don't see any calcification in profile with urinary tract or stent. Procedure Note Gibson Velazco, DO - 12/02/2025 DICTATING PHYSICIAN: Gibson Velazco DO EXAM: XR ABDOMEN KUB FLAT PLATE; 09/08/2025 2:18 PM HISTORY: Follow-up left kidney stones COMPARISON: CT 07/07/2025 FINDINGS: Supine view of the abdomen was obtained. Bowel gas pattern is normal. Left ureteral stent present. I don't see anycalcification in profile with urinary tract or stent. Micha Will MD IMG DIAGNOSTIC ORDERABLES Henrietta l Result * CULTURE, URINE (09/08/2025 1:57 PM DESIZING MACHINE OPERATOR) Only the most recent of2 resultswithin the time period is included. CULTURE RESULTS ESCHERICHIA COLI 09/10/2025 4:47 PM DESIZING MACHINE OPERATOR [facility] Culture URINE SPECIMEN OBTAINED BY CLEAN CATCH PROCEDURE / Unknown Non-Phlebotomy Collection / Unknown 09/08/2025 1:57 PM DESIZING MACHINE OPERATOR 09/08/2025 1:57 PM DESIZING MACHINE OPERATOR Narrative Organism Antibiotic Method Susceptibility Escherichia coli Ampicillin [facility] II 4 mcg/ml: Susceptible Escherichia coli Ampicillin/sulbactam [facility] II <=2 mcg/ml: Susceptible Escherichia coli Cefazolin [facility] II <16 mcg/ml: Susceptible Escherichia coli Cefepime [facility] II <=0.12 mcg/ml: Susceptible Escherichia coli Ceftriaxone [facility] II <=0.25 mcg/ml: Susceptible Escherichia coli Gentamicin [facility] II <=1 mcg/ml: Susceptible Escherichia coli Levofloxacin [facility] II <=0.12 mcg/ml: Susceptible Escherichia coli Meropenem [facility] II <=0.25 mcg/ml: Susceptible Escherichia coli Nitrofurantoin [facility] II <=16 mcg/ml: Susceptible Escherichia coli Piperacillin/Tazobactam [facility] II <=4 mcg/ml: Susceptible Escherichia coli Trimeth/Sulfamethoxazole [facility] I I <=20 mcg/ml: Susceptible Micha Will MD MICROBIOLOGY - GENERAL ORDERAB LES Final Result [facility] [address] [place] [address], [place] * XR SURGICAL EXAM (08/25/2025 1:58 PM DESIZING MACHINE OPERATOR) 08/25/2025 1:58 PM DESIZING MACHINE OPERATOR Narrative RESULTING AGENCY - 08/25/2025 2:02 PM DESIZING MACHINE OPERATOR XR SURGICAL EXAM : 08/25/2025 1:58 PM HISTORY: Left ureter calculus COMPARISON: CT 07/07/2025 FLUOROSCOPY TIME:21 seconds DOSE air kerma:5.9829 mGy FINDINGS: Submitted intraoperative fluoroscopic images demonstrate retrograde cannulation and opacification of the left ureter with stent placement. Procedure Note Maxi Castillo MD - 08/27/2025 XR SURGICAL EXAM : 08/25/2025 1:58 PM HISTORY: Left ureter calculus COMPARISON: CT 07/07/2025 FLUOROSCOPY TIME:21 seconds DOSE air kerma:5.9829 mGy FINDINGS: Submitted intraoperative fluoroscopic images demonstrate retrogradecannulation and opacification of the left ureter with stent placement. Micha Will MD IMG DIAGNOSTIC ORDERABLES Henrietta l Result RESULTING AGENCY * Pathology Surgical (08/25/2025 1:53 PM DESIZING MACHINE OPERATOR) Case Report Surgical Pathology Report Case: [id number] Authorizing Provider: Micha Bo MD Collected: 08/25/2025 01:53 PM Ordering Location: [facility] Received: 08/26/2025 07:36 AM [facility] Main OR Pathologist: Dominga Perales MD PhD Specimen: Stone, Left renal stone 08/27/2025 2:31 PM DESIZING MACHINE OPERATOR [facility] FINAL DIAGNOSIS Calculus, left kidney, removal: - Nephrolithiasis (gross examination only). 08/27/2025 2:31 PM DESIZING MACHINE OPERATOR [facility] at 1431 DESIZING MACHINE OPERATOR Pre-Operative Diagnosis KIDNEY STONE 08/27/2025 2:31 PM DESIZING MACHINE OPERATOR [facility] Gross Description A. Left renal stone Received in saline labeled with the patient identifiers and left renal stone are multiple anaya-brown calculi measuring 0.1-0.4 cm in greatest dimension. The specimen is sent to a reference lab for crystallographic examination. 08/27/2025 2:31 PM DESIZING MACHINE OPERATOR [facility] Tissue STONE - BODY MATERIAL / Unknown 08/25/2025 1:53 PM DESIZING MACHINE OPERATOR 08/26/2025 7:36 AM DESIZING MACHINE OPERATOR us Micha Will MD PATHOLOGY/CYTOLOGY ORDERABLES Final Result [facility] [address] [place] [address] * LMA (08/25/2025 1:33 PM DESIZING MACHINE OPERATOR) Narrative Alexander Contreras APRN, CRNA - 08/25/2025 1:33 PM DESIZING MACHINE OPERATOR Alexander Contreras APRN, CRNA 08/25/2025 1:33 PM LMA Staffing Performed: resident/SWIMMING COACH OR INSTRUCTOR Resident/SWIMMING COACH OR INSTRUCTOR: Alexander Contreras APRN, CRNA Performed by: Alexander Contreras APRN, CRNA Authorized by: Alexander Contreras APRN, CRNA Airway Details Overall Difficulty: Easy Preoxygenated: Yes Ease of Mask Ventilation: Easy LMA Type: Disposable LMA Size: 3 Adequate seal established: Yes LMA placement confirmed by: bilateral breath sounds, CO2 detection Atraumatic LMA Placement us Alexander Contreras APRN, CRNA ANESTHESIA ORDERAB LES Final Result * CT REFERENCE IMAGES FOR IMAGE IMPORT (07/15/2025 10:53 AM CDT) us Not On File Provider IMG CT ORDERABLES Final Res ult * KALEB,POST-VOID RES,US,NON-IMAGING (07/10/2025 1:00 PM CDT) Narrative Meka Kwan - 07/10/2025 1:00 PM CDT Meka Kwan 07/10/2025 3:37 PM POCT Bladder Scan collected per standing order of Dr. Bo on 07/10/2025 PVR= 0 ML Micha Will MD [place] - SURGERY Final Result * CT - ABDOMEN/PELVIS (07/07/2025 12:00 AM CDT) 07/07/2025 us Provider Scan IMG CT ORDERABLES Final Result SCAN from Last 3 Months Insurance MEDICARE [facility] [place] Care Teams Certified Massage Therapist Relationship Specialty Start Date End Date Tucker Pacheco MD [address] [address] PCP - General Primary Care 07/10/25 Micha Bo MD [address] [address] Consulting Physician Urology 07/10/25
--- OUTSIDE RECORDS SUMMARY | 2025-09-23 18:43 | XMS_ITS | Clinical Summary ---
Author Organization [facility] Address [address] [place], [place] [id number] Care Team Providers Care Shoe Stitcher Name Role Phone Summer Avila Primary Care Provider [phone] Encounters Date Type Department Care Team Description 07/30/2025 Orders Only [place] [id number] Jaquelin Vann NP 07/03/2025 10:37 AM CDT - 07/03/2025 11:59 PM CDT Hospital Encounter [place] [id number] Calculus of kidney Discharge Disposition: Discharge to home or self care from Last 3 Months Social History Tobacco Use Types Packs/Day Years Used Date Smoking Tobacco: Never Assessed Comments Unknown Sex and Gender Information Value Date Recorded Sex Assigned at Not on file Legal Sex Female 7:27 PM MEDIATION COMMISSIONER Gender Identity Not on file Sexual Orientation [...] 2009 Well Visit 65+ 2024 Covid-19 Vaccine (2024-2 6 season) 2025 07/12/2024, 07/13/2023, 07/28/2022, Additional history [...] - Electronically signed by Roberto Kellogg M.D. T: Report ID: [id number] Reading Location: [id number] Procedure Note Roberto Kellogg MD - 07/03/2025 [...] Roberto Kellogg M.D. LB T: Report ID: [id number] Reading Location: [id number] Jaquelin Vann CORE FITTER IMG CT PROCEDURES Final Res ult from Last 3 Months Insurance [employer] MEDICARE HMO [employer] MEDICARE HMO Care Teams Shoe Stitcher Relationship Specialty Start Date End Date Summer Avila PA [address] [place] [address] PCP - General Physician Case Coordinator 07/01/25
--- OUTSIDE RECORDS SUMMARY | 2025-09-23 18:43 | XMS_ITS | Encounter Summary ---
Author Organization [facility] Address [address] [place] [address] Phone Care Team Providers Care Professional Bass Fisher Name Role Phone Tucker Pacheco MD Primary Care Provider [phone] Micha Bo MD Unavailable [phone] Encounter Details Date Type Department Care Team (Late st Contact Info) Description 09/10/2025 Results Follow-Up [facility] [address] [place] [address] Micha Bo MD [address] [facility], [address] [address] CULTURE, URINE Social History Tobacco Use Types Packs/Day Years Used Date Smoking Tobacco: Never Smokeless Tobacco: Never Alcohol Use Standard Drinks/Week Comments Yes 0 (1 standard drink = 0.6 oz pur e alcohol) Rare Sexually Active Control Partners Comments Not Currently Comments No Sex and Gender Information Value Date Recorded Sex Assigned at Not on file Legal Sex Female 8:08 PM CDT Gender Identity Not on file Sexual Orientation Not on file documented as of this encounter Functional Status * BP Answer Date of Assessment Author 131/82 09/11/2025 1:33 PM Ligia Boss CNA * Pulse Answer Date of Assessment Author 73 09/11/2025 1:33 PM Ligia Boss CNA * Resp Answer Date of Assessment Author 16 09/11/2025 1:33 PM PHYSICIAN RELATIONS MANAGER Sanzotter a, Ligia L., REGIONAL DIRECTOR OF ADMISSIONS * SpO2 Answer Date of Assessment Author 96 09/11/2025 1:33 PM PHYSICIAN RELATIONS MANAGER Ligia Richmond, REGIONAL DIRECTOR OF ADMISSIONS documented as of this encounter Mental Status * BP Answer Entry Date Author 131/82 09/11/2025 1:33 PM PHYSICIAN RELATIONS MANAGER Ligia Richmond, REGIONAL DIRECTOR OF ADMISSIONS * Pulse Answer Entry Date Author 73 09/11/2025 1:33 PM PHYSICIAN RELATIONS MANAGER Ligia Richmond, REGIONAL DIRECTOR OF ADMISSIONS * SpO2 Answer Entry Date Author 96 09/11/2025 1:33 PM PHYSICIAN RELATIONS MANAGER Ligia Richmond, REGIONAL DIRECTOR OF ADMISSIONS documented in this encounter Progress Notes * Micha Bo MD - 09/10/2025 4:52 PM CST Can you please let the patient know UCX pos, please start abx. Thank you, Micha Bo ICIAN RELATIONS MANAGER documented in this encounter Plan of Treatment Upcoming Encounters Date Type Department Care Team (Late st Contact Info) Description 10/23/2025 1:15 PM PHYSICIAN RELATIONS MANAGER Office Visit [facility] [address] [place] [address] Micha Bo MD [address] [address] documented as of this encounter Visit Diagnoses Not on filedocumented in this encounter Care Teams Professional Bass Fisher Relationship Specialty Start Date End Date Tucker Pacheco MD [address] [place] [address] PCP - General Primary Care 07/10/25 Micha Bo MD [address] [address] Consulting Physician Urology 07/10/25 documented as of this encounter
--- NOTE | 2025-09-23 21:35 | ED.FEMALEGU ---
HPI - Female Genitourinary General Chief complaint: Urogenital-Female Stated complaint: L flank pain Time Seen by Provider: 09/23/25 21:25 History of Present Illness HPI Narrative: 64-year-old female with a history of kidney stones status post nephrolithotripsy, basket retrieval and interval ureteral stent placement and removal. She gets her urological care at [facility] under doctor Anupam. Patient presents to the emergency department today as she was having some burning with urination and left lower quadrant abdominal pain going up towards her kidney. She thinks it is just a urinary infection but is concerned about her potential kidney stone history. Denies any difficulty urinating but just states it alfonso. No fever, chills, nausea, vomiting, epigastric abdominal pain, chest pain or shortness of breath. Her stent was removed on the and she was prescribed a course of Keflex for E coli in her urine. Was otherwise doing well until her symptoms started yesterday morning. Has a follow-up appointment in 3 weeks with her urologist. Related Data Home Medications ?Medication ?Instructions ?Recorded ?Confirmed ?Last Taken ?Type amlodipine 5 mg tablet 5 mg PO DAILY 06/02/20 07/14/25 11/25/24 History estradiol 0.5 mg tablet 0.5 mg PO HS 06/02/20 07/14/25 11/24/24 History ezetimibe 10 mg tablet (Zetia) 10 mg PO HS 06/02/20 07/14/25 11/24/24 History hydrochlorothiazide 12.5 mg capsule 12.5 mg PO DAILY 06/02/20 07/14/25 11/24/24 History lisinopril 10 mg tablet 10 mg PO HS 06/02/20 07/14/25 11/24/24 History medroxyprogesterone 2.5 mg tablet 2.5 mg PO HS 06/02/20 07/14/25 08/22/24 History metoprolol succinate 50 mg 50 mg PO DAILY 06/02/20 07/14/25 11/25/24 History tablet,extended release 24 hr rosuvastatin 10 mg tablet (Crestor) 10 mg PO HS 06/02/20 07/14/25 11/24/24 History cholecalciferol (vitamin D3) 1,250 1,250 mcg PO .every 10 days 04/16/23 07/14/25 11/21/24 History mcg (50,000 unit) capsule acetaminophen 650 mg 650 mg PO Q12H 11/03/24 07/14/25 Unknown History tablet,extended release (Tylenol Arthritis Pain) Allergies Allergy/AdvReac Type Severity Reaction Status Date / Time No Known Allergies Allergy Verified 07/14/25 10:17 Review of Systems Review of Systems: As reviewed above in HPI All systems reviewed & are unremarkable except as noted in HPI and below PMFSH Past Medical History Medical History ALEC (obstructive sleep apnea) PVD (peripheral vascular disease) Prediabetes Essential hypertension Mixed hyperlipidemia BMI greater than 30 Surgical History Surgical History Status post total hip replacement, left (~11/25/24) Social History Social History Smoking packs per day: 0 Smoking cigarettes per day: 0.0 Years smoked: 0 Smoking pack-years: 0.00 Smoking status: Never smoker Second hand tobacco smoke exposure: Yes Additional smoking assessment comments: DENIES ANY FORM OF TOBACCO USE Alcohol intake: current Drinks per week: 0 Substance use: never Substance use type: does not use Lack of Transportation: No Lack of Food: Never True Current Housing: I Have Housing Concerned About Future Housing: No Difficulty Paying Gas/Electric Bills: No Difficulty Paying for Meds: No Currently Unemployed: No Education: High School Diploma/GED Difficulty w/ Childcare or Family Care: No Living arrangements: alone Spiritual care concerns: No Exam Narrative: GENERAL: [Well-appearing, well-nourished, and in no acute distress.] HEAD: [Normocephalic, atraumatic.] EYES: [PERRLA and EOMI.] ENT: Nares clear, no rhinorrhea or epistaxis. Mucous membranes moist. NECK: Supple. CHEST: [Clear to auscultation. No respiratory distress.] HEART: [Regular rate and rhythm]. No murmur heard. [Normal peripheral pulses.] ABDOMEN: [Soft, nondistended], [nontender], [No rigidity or guarding] EXTREMITIES: Normal range of motion. [No edema.] SKIN: Warm, dry, no rash. NEURO: [No focal deficits]. Alert and oriented [x3.] PSYCH: [Normal mood and affect.] Course Vital Signs Vital signs: Vital Signs Temperature 36.6 C 09/23/25 17:56 Pulse Rate 80 09/23/25 17:56 Respiratory Rate 16 09/23/25 17:56 Blood Pressure 119/80 09/23/25 17:56 Pulse Oximetry 98 09/23/25 17:56 Temperature 36.6 C 09/23/25 17:56 Pulse Rate 68 09/23/25 23:46 Respiratory Rate 18 09/23/25 23:46 Blood Pressure 121/59 L 09/23/25 23:46 Pulse Oximetry 99 09/23/25 23:46 MDM MDM Narrative Medical decision making narrative: 64-year-old female with a history of kidney stones status post nephrolithotripsy, basket retrieval and interval ureteral stent placement and removal. She gets her urological care at [facility] under doctor Anupam. Patient presents to the emergency department today as she was having some burning with urination and left lower quadrant abdominal pain going up towards her kidney. She thinks it is just a urinary infection but is concerned about her potential kidney stone history. Denies any difficulty urinating but just states it alfonso. No fever, chills, nausea, vomiting, epigastric abdominal pain, chest pain or shortness of breath. Her stent was removed on the and she was prescribed a course of Keflex for E coli in her urine. Was otherwise doing well until her symptoms started yesterday morning. Has a follow-up appointment in 3 weeks with her urologist. Patient is overall very well-appearing not any acute distress. She has nonreproducible pain or left lower quadrants and burning urination concerning for urinary tract infection, pyelonephritis, ureteral stone, infected stone. Low suspicion intra-abdominal abscess or gastroenteritis/diverticulitis given her history. She was given Toradol and fluids and laboratory studies and CT scan were obtained as well as urinalysis. She is hemodynamically stable and otherwise well-appearing so most likely be able to follow-up with Urology upon completion of workup. Laboratory studies show a very slight leukocytosis of 10.9. No anemia. Normal platelet count. Kidney function is normal. Normal electrolytes. No significant LFT elevations. Urinalysis shows urinary tract infection. Culture sent. CT scan shows left hydronephrosis and perinephric fat stranding without any evidence of any stone pathology. Likely pyelonephritis given the recent instrumentation and urinary tract infection. Patient's symptoms are under control at this time. She was given Levaquin for pyelonephritis and will be discharged home with oral Levaquin for 7 days and instructions for close follow-up with her urologist which she ready has an appointment for. Given return precautions and safely discharged at this time. Differential Diagnosis Differential Diagnosis: concerning for urinary tract infection, pyelonephritis, ureteral stone, infected stone. Low suspicion intra-abdominal abscess or gastroenteritis/diverticulitis given her history. Lab Data MDM Lab Attestation statement: I personally reviewed the patient's lab results. 09/23/25 21:42 09/23/25 21:42 Labs: Lab Results 09/23/25 09/23/25 Range/Units 21:31 21:42 WBC 10.9 H (4.5-10.0) K/mm3 RBC 4.73 (4.2-5.4) M/mm3 Hgb 14.9 (12.0-15.0) g/dL Hct 43.8 (37.0-47.0) % MCV 92.6 (80-100) fl MCH 31.5 (26-34) pg MCHC 34.0 (32-36) g/dl RDW 12.9 (11.5-14.5) % Plt Count 369 (150-375) k/mm3 MPV 8.6 (7.4-10.4) fl Immature Gran % (Auto) 0.4 (0-0.5) % Neut % (Auto) 73.0 (45.5-73.1) % Lymph % (Auto) 17.6 L (18.3-44.2) % Grand % (Auto) 7.4 (2.6-8.5) % Eos % (Auto) 1.3 (0-4.4) % Baso % (Auto) 0.3 (0.2-1.2) % Lymph # (Auto) 1.91 (0.9-3.2) K/mm3 Grand # (Auto) 0.8 H (0.1-0.6) K/mm3 Eos # (Auto) 0.1 (0-0.3) K/mm3 Baso # (Auto) 0.0 (0.0-0.1) K/mm3 Abs Immat Gran (auto) 0.04 H (0.00-0.031) K/mm3 Absolute Neuts (auto) 7.9 H (1.3-6.7) K/mm3 Absolute Nucleated RBC 0.000 (0.0-0.012) K/mm3 Nucleated RBC % 0.0 (0.0-0.2) % Sodium 142 (137-145) mmol/L Potassium 4.0 (3.4-5.0) mmol/L Chloride 109 H (98-107) mmol/L Carbon Dioxide 21 L (22-30) mmol/L Anion Gap 12 (4-12) mmol/L BUN 18 H (7-17) mg/dL Creatinine 0.93 (0.7-1.0) mg/dL Estim Creat Clear Calc 55 ml/min Estimated GFR > 60 (59 - ) Glucose 162 H (65-110) mg/dL Calcium 9.6 (8.4-10.2) mg/dL Total Bilirubin 0.7 (0.2-1.3) mg/dL AST 27 (14-36) U/L ALT 24 (6-35) U/L Alkaline Phosphatase 101 (38-126) U/L Total Protein 8.3 H (6.3-8.2) g/dL Albumin 4.6 (3.5-5.1) g/dL Urine Color Yellow (Yellow) Urine Appearance Cloudy H (Clear) Urine pH 5.0 (5.0-9.0) Ur Specific [place] 1.023 (1.001-1.035) Urine Protein Trace (Negative) mg/dL Urine Glucose (UA) Negative (Negative) mg/dL Urine Ketones Trace H (Negative) mg/dL Ur Blood (Man) 1+ H (Negative) Urine Nitrate Negative (Negative) Urine Bilirubin Negative (Negative) Urine Urobilinogen 1.0 (<2.0) mg/dL Leukocyte Esterase Rfl 1+ H (Negative) EMILIANO/UL Urine RBC 0-2 (0-2) /hpf Urine WBC 21-50 H (0-3) /hpf Ur Squamous Epith Cells Few (Few) /hpf Urine Bacteria Rare /hpf Urine Casts 0-2 Imaging Data Attestation: I personally reviewed and interpreted this imaging study as follows: My impression: Impressions Abdomen/Pelvis CT 09/23/25 22:04 IMPRESSION: Left hydronephrosis with hydroureter and perinephric and periureteral stranding may represent infectious process. Correlation with urinalysis is recommended. There is no obstructive stone. Cholelithiasis without CT evidence of acute cholecystitis. Colonic diverticulosis without evidence of acute diverticulitis. All CT scans at this facility are performed using low dose modulation techniques as appropriate to perform exam including the following: automated exposure control; use of iterative reconstruction technique; adjustment of the mA and/or kV according to patient size (this includes techniques or standardized protocols for targeted exams where dose is matched to indication/reason for exam). Radiologist's impression: ITS Impressions Abdomen/Pelvis CT 09/23/25 22:04 IMPRESSION: Left hydronephrosis with hydroureter and perinephric and periureteral stranding may represent infectious process. Correlation with urinalysis is recommended. There is no obstructive stone. Cholelithiasis without CT evidence of acute cholecystitis. Colonic diverticulosis without evidence of acute diverticulitis. All CT scans at this facility are performed using low dose modulation techniques as appropriate to perform exam including the following: automated exposure control; use of iterative reconstruction technique; adjustment of the mA and/or kV according to patient size (this includes techniques or standardized protocols for targeted exams where dose is matched to indication/reason for exam). Discharge Plan Discharge Clinical Impression: Acute pyelonephritis, Acute UTI Patient Disposition: Home Condition: Stable Instructions: Antibiotic Form, Urinary Tract Infection in Women (DC), Kidney Infection (ED) Additional Instructions: CT scan and laboratory studies show a mild kidney infection from a urinary tract infection. No signs of any stone, likely related to the recent operative interventions and a recent UTI. We have sent a urine culture to identify the bacteria causing the symptoms and we will treat this with a 7 day course of strong broad coverage antibiotic. Take the antibiotic as prescribed as well as the pain medications as needed. Tylenol for fever control. Return with any emergent concerns or any issues otherwise follow-up with your urologist on a short-term basis. Patient Language: Nepalese Prescriptions: New levofloxacin 750 mg tablet 750 mg PO DAILY 7 Days Qty: 7 0RF ketorolac 10 mg tablet 10 mg PO Q8H PRN (Reason: pain) 5 Days Qty: 20 0RF Rx Instructions: maximum total duration of 5 days from all oral, intranasal, or parenteral formulations No Action ezetimibe [Zetia] 10 mg tablet 10 mg PO HS medroxyprogesterone 2.5 mg tablet 2.5 mg PO HS estradiol 0.5 mg tablet 0.5 mg PO HS rosuvastatin [Crestor] 10 mg tablet 10 mg PO HS lisinopril 10 mg tablet 10 mg PO HS hydrochlorothiazide 12.5 mg capsule 12.5 mg PO DAILY metoprolol succinate 50 mg tablet extended release 24 hr 50 mg PO DAILY amlodipine 5 mg tablet 5 mg PO DAILY cholecalciferol (vitamin D3) 1,250 mcg (50,000 unit) capsule 1,250 mcg PO .every 10 days Rx Instructions: takes every 10 days. acetaminophen [Tylenol Arthritis Pain] 650 mg tablet extended release 650 mg PO Q12H cephalexin 500 mg capsule 500 mg PO Q12H 7 Days Qty: 14 0RF hydrocodone-acetaminophen 5-325 mg tablet 1 tablet PO Q6H PRN (Reason: pain) Qty: 20 0RF Follow-up/Referrals: Tucker Pacheco MD [Primary Care Provider, Family Practice] Time of Disposition: 23:07
[2025-09-23 21:38] LABS: Add Urine Microscopic? YES; Appearance Urine Cloudy (Clear); Glucose Urine UA Negative (Negative); Leukocyte Esterase Ur 1+ LEU/UL (Negative); Nitrate Urine Negative (Negative); Non Pathogenic Casts 0-2; Specific Grav Ur 1.023 (1.001-1.035)
[2025-09-23 21:50] LABS: Hematocrit 43.8 % (37.0-47.0); Hemoglobin 14.9 g/dL (12.0-15.0); Immature Granulocyte Percent A 0.4 % (0-0.5); Lymphocytes Absolute Auto 1.91 K/mm3 (0.9-3.2); Mean Corpuscular HGB Conc 34.0 g/dl (32-36); Mean Corpuscular Hemoglobin 31.5 pg (26-34); Mean Corpuscular Volume 92.6 fl (80-100); Nucleated Red Blood Cells Absolute Auto 0.000 K/mm3 (0.0-0.012); Nucleated Red Blood Cells Perc 0.0 % (0.0-0.2); Platelet Count Result 369 k/mm3 (150-375); Red Blood Count 4.73 M/mm3 (4.2-5.4); White Blood Count 10.9 K/mm3 (4.5-10.0)
[2025-09-23] MEDS: LACTATED RINGERS 1,000 ML 999 ML IV CONT (21:51)
[2025-09-23] MEDS: KETOROLAC 15 MG/ML VIAL (*BKC) IV PUSH (21:51)
[2025-09-23 22:01] LABS: Alanine Aminotransferase 24 U/L (6-35); Albumin Level 4.6 g/dL (3.5-5.1); Alkaline Phosphatase 101 U/L (38-126); Anion Gap 12 mmol/L (4-12); Aspartate Amino Transferase 27 U/L (14-36); Bilirubin,Total 0.7 mg/dL (0.2-1.3); Blood Urea Nitrogen 18 mg/dL (7-17); Calcium 9.6 mg/dL (8.4-10.2); Carbon Dioxide 21 mmol/L (22-30); Chloride 109 mmol/L (98-107); Estimated CRCL calculation 55 ml/min; Estimated Glomerular Filt Rate > 60; Glucose 162 mg/dL (65-110); Potassium 4.0 mmol/L (3.4-5.0); Sodium 142 mmol/L (137-145); Total Protein 8.3 g/dL (6.3-8.2)
[2025-09-23] MEDS: levoFLOXacin 750 MG/D5W 150 ML 750 MG/150 ML BAG 100 MG IVPB (22:26)
[2025-09-23 23:01] VITALS: BP 130/60; PULSE 78; RESP 16; O2SAT 98
[2025-09-23 23:46] VITALS: BP 121/59; PULSE 68; RESP 18; O2SAT 99
== END 2025-09-23 23:54 | disposition home or self-care (01) ==
PROVIDERS: Emergency Provider Student in an Organized Health Care Education/Training Program; PCP Family Medicine
DX: N10 Acute pyelonephritis (principal); I10 Essential (primary) hypertension; E78.2 Mixed hyperlipidemia
CPT/HCPCS: 36415; 74176; 80053; 81001; 85025; 87077; 87086; 87186; 96361; 96365; 96375; 99284; J1885; J1956; J7120